=== PATIENT | male | born 1965 | race Caucasian/White ===

== ENCOUNTER → 2016-07-15 | Outpatient (CLI) | payer OTHER ==
[2016-07-15 19:18] LABS: Hemoglobin A1C 5.6 % (4.2-6.1)
== END | disposition home or self-care (01) ==
LOC: MMGSC 14:22
PROVIDERS: ATTEND Family Medicine
DX: E11.9 Type 2 diabetes mellitus without complications (principal)
CPT/HCPCS: 36415; 83036

== ENCOUNTER 2016-09-12 09:39 | Day surgery (SDC) | payer OTHER ==
[2016-09-11 09:06] VITALS: BMI 34.2
[~2016-09-12 09:39] MED LIST: LACTATED RINGERS 1,000 ML IV SCH; LIDOCAINE 1% 20 ML VIAL (10MG/ML) FOR IV START INTRADERMA PRN
[2016-09-12 11:47] VITALS: RESP 16; TEMP 98.1
[2016-09-12] MEDS ORDERED: PROPOFOL 10 MG/ML 20 ML VIAL IV ONE (12:20)
[2016-09-12] MEDS ORDERED: LACTATED RINGERS 1,000 ML IV ONE (12:55)
[2016-09-12 13:24] VITALS: BP 113/76; PULSE 71
--- NOTE | 2016-09-12 13:52 | P.PCN ---
Date of Procedure: 09/12/16 Procedure(s) Performed: Procedure: Colonoscopy and polypectomy. Preoperative diagnosis: Occult blood positive stools. Postoperative diagnosis: 1. Large sigmoid polyp at 50 cm from the anal verge snared and retrieved by capturing it with the snare and withdrawing the endoscope. 2. Distal sigmoid polyp snared and retrieved by suction. 3. Sigmoid diverticulosis with no evidence of acute diverticulitis or strictures. 4. Low-grade internal hemorrhoids without bleeding at the time of this exam. Preparation: HalfLytely prep. Sedation: Was provided by anesthesia. Brief clinical history: The patient is a 51-year-old male who is referred for this evaluation because of occasional blood streaking of his stools and positive occult blood testing. There is no family history of colon cancer or change in bowel habits. No history of anemia. This would be his first colonoscopy. Procedure: With the patient on his left lateral decubitus position and after informed consent and adequate sedation, the perianal area was inspected and it did not show any fissures or fistulas. There were no masses felt on digital rectal examination. The Olympus CFQ 160L video colonoscope was then inserted in the rectum in the usual fashion and advanced to the cecum. The mucosa appeared healthy. There was a large pedunculated polyp at 50 cm from the anal verge which was snared and retrieved by capturing it with the snare then withdrawn the endoscope. In addition, there was a small to medium-sized distal sigmoid polyp which was snared and retrieved by suction. There was scattered diverticulosis in the sigmoid with no evidence of acute diverticulitis or strictures. I retroflexed the endoscope in the rectum before the endoscope was withdrawn. Low-grade internal hemorrhoids were noted but there was no bleeding. The patient tolerated the procedure well. Plan: The patient was reassured. Discussed dietary measures and local care for hemorrhoids. With the finding of polyps, I am recommending repeat exam in 3 years. He will follow up with you as planned.
== END 2016-09-12 14:10 | disposition home or self-care (01) ==
LOC: ORWHC2ENDO 09:39
DX: D12.5 Benign neoplasm of sigmoid colon (principal); K57.30 Diverticulosis of large intestine without perforation or abscess without bleeding; K64.8 Other hemorrhoids; I10 Essential (primary) hypertension; I48.91 Unspecified atrial fibrillation; Z79.01 Long term (current) use of anticoagulants; F32.9 Major depressive disorder, single episode, unspecified; J45.909 Unspecified asthma, uncomplicated; Z79.51 Long term (current) use of inhaled steroids; Z79.899 Other long term (current) drug therapy
CPT/HCPCS: 45385; J2704; 88305

== ENCOUNTER → 2017-01-17 | Outpatient (CLI) | payer OTHER ==
[2017-01-17 20:59] LABS: ALT 44 U/L (21-72); AST 35 U/L (17-59); Alkaline Phosphatase 99 U/L (38-126); Anion Gap 12 mmol/L; Basophils # (A) 0.1 k/uL (0-0.2); Basophils % (A) 1 %; Blood Urea Nitrogen 17 mg/dL (9-20); CH 31.7; CHCM 35.4; Calcium 10.2 mg/dL (8.4-10.2); Carbon Dioxide 27 mmol/L (22-30); Chloride 98 mmol/L (98-107); Cholesterol 134 mg/dL (<200); Eosinophils # (A) 0.3 k/uL (0-0.7); Eosinophils % (A) 4 %; Glucose 111 mg/dL (74-99); HDL Cholesterol 45 mg/dL (40-60); HGB 17.9 gm/dL (13.0-17.5); Luc # (Auto) 0.11; Luc % (Auto) 2; Lymphocytes # (A) 1.3 k/uL (1.0-4.8); Lymphocytes % (A) 18 %; MCHC 34.5 g/dL (31.0-37.0); MCV 89.7 fL (80.0-100.0); Mean Platelet Volume 7.4; Monocytes # (A) 0.4 k/uL (0-1.0); Monocytes % (A) 5 %; Neutrophils # (A) 5.2 k/uL (1.3-7.7); Neutrophils % (A) 71 %; Non-African American GFR(MDRD) >60 (>60 ml/min/1.73 sqM); Potassium 4.1 mmol/L (3.5-5.1); RBC 5.79 m/uL (4.30-5.90); RDW 13.9 % (11.5-15.5); Sodium 137 mmol/L (137-145); Total Bilirubin 0.7 mg/dL (0.2-1.3); Total Protein 7.8 g/dL (6.3-8.2); WBC 7.4 k/uL (3.8-10.6); WBC (Perox) 7.14
[2017-01-17 23:13] LABS: Hemoglobin A1C 5.9 % (4.2-6.1)
== END ==
LOC: MMGSC 17:16
PROVIDERS: ATTEND Family Medicine
DX: I48.91 Unspecified atrial fibrillation (principal); R20.2 Paresthesia of skin; E11.9 Type 2 diabetes mellitus without complications
CPT/HCPCS: 36415; 80053; 80061; 83036; 84443; 85025

== ENCOUNTER → 2017-07-04 | Outpatient (CLI) | payer OTHER ==
[2017-07-04 21:50] LABS: Basophils # (A) 0.1 k/uL (0-0.2); Basophils % (A) 1 %; Eosinophils # (A) 0.4 k/uL (0-0.7); Eosinophils % (A) 5 %; HCT 46.8 % (39.0-53.0); HGB 15.6 gm/dL (13.0-17.5); Lymphocytes # (A) 1.2 k/uL (1.0-4.8); Lymphocytes % (A) 16 %; MCH 30.8 pg (25.0-35.0); MCHC 33.4 g/dL (31.0-37.0); MCV 92.3 fL (80.0-100.0); Mean Platelet Volume 7.8; Monocytes # (A) 0.4 k/uL (0-1.0); Monocytes % (A) 6 %; Neutrophils % (A) 71 %; Platelet Count 226 k/uL (150-450); RBC 5.07 m/uL (4.30-5.90); RDW 13.8 % (11.5-15.5); WBC 7.1 k/uL (3.8-10.6)
[2017-07-04 21:57] LABS: ALT 39 U/L (21-72); AST 33 U/L (17-59); Albumin 4.1 g/dL (3.5-5.0); Alkaline Phosphatase 81 U/L (38-126); Anion Gap 13 mmol/L; Blood Urea Nitrogen 16 mg/dL (9-20); Calcium 9.3 mg/dL (8.4-10.2); Carbon Dioxide 27 mmol/L (22-30); Chloride 102 mmol/L (98-107); Cholesterol 134 mg/dL (<200); Glucose 102 mg/dL (74-99); HDL Cholesterol 41 mg/dL (40-60); LDL Cholesterol,Calculated 65 mg/dL (0-99); Sodium 142 mmol/L (137-145); Total Bilirubin 0.7 mg/dL (0.2-1.3); Total Protein 7.2 g/dL (6.3-8.2); Triglycerides 138 mg/dL (<150)
[2017-07-04 22:10] LABS: T4, Free (Free Thyroxine) 0.99 ng/dL (0.78-2.19)
[2017-07-05 01:54] LABS: Hemoglobin A1C 5.5 % (4.0-6.0)
== END | disposition home or self-care (01) ==
LOC: MMGSC 15:54
PROVIDERS: ATTEND Family Medicine
DX: E78.5 Hyperlipidemia, unspecified (principal); E11.9 Type 2 diabetes mellitus without complications
CPT/HCPCS: 36415; 80053; 80061; 83036; 84439; 84443; 85025

== ENCOUNTER 2017-09-26 09:00 | Observation (INO) | payer OTHER ==
[2017-09-26] MEDS ORDERED: ASPIRIN 81 MG PO STA (09:15)
[2017-09-26] MEDS ORDERED: NITROGLYCERIN SL TABS 0.4 MG TAB SUBLINGUAL STA ×3 (09:15)
[2017-09-26] MEDS ORDERED: DILTIAZEM 50 MG in SODIUM CHLORIDE 0.9% 40 ML IV ONE (09:19)
[2017-09-26] MEDS ORDERED: DILTIAZEM 5 MG/1 ML (25ML VIAL) IV STA (09:19)
--- NOTE | 2017-09-26 09:19 | ED ---
General Adult HPI - General Chief complaint: Chest Pain Stated complaint: Chest Pain Time Seen by Provider: 09/26/17 09:11 Source: patient, RN notes reviewed Mode of arrival: wheelchair Limitations: no limitations - History of Present Illness Initial comments: Patient is a pleasant 52-year-old male presenting to the emergency Department with chest discomfort. Onset of symptoms was last night. Symptoms have been mostly steady. Discomfort feels dull in the sternal region. Discomfort is more sharp with deep inspiration. Symptoms do worsen with deep inspiration as well. Patient does feel somewhat short of breath. No nausea or diaphoresis. Patient has had similar episodes a couple times over the past month lasting usually less than an hour. No radiation. Patient does have history of atrial fibrillation and is on an eliquis for this. Discomfort is currently 11/18. - Related Data Home Medications Medication Instructions Recorded Confirmed Albuterol Sulfate [Proair Hfa] 1 - 2 puff INHALATION RT-Q6H PRN 09/11/16 Atorvastatin [Lipitor] 20 mg PO DAILY 09/11/16 09/26/17 Chlorthalidone [Hygroton] 25 mg PO DAILY 09/11/16 09/26/17 Diltiazem HCl [Diltiazem 24Hr ER] 180 mg PO DAILY 09/11/16 09/26/17 Mometasone/Formoterol [Dulera 100 2 puff INHALATION RT-BID 09/11/16 09/26/17 Mcg/5 Mcg Inhaler] Montelukast [Singulair] 10 mg PO DAILY 09/11/16 09/26/17 Ramipril 2.5 mg PO DAILY 09/11/16 09/26/17 Sertraline [Zoloft] 100 mg PO DAILY 09/11/16 09/26/17 Apixaban [Eliquis] 5 mg PO BID 09/26/17 09/26/17 Gabapentin [Neurontin] 300 mg PO BID 09/26/17 09/26/17 Allergies Allergy/AdvReac Type Severity Reaction Status Date / Time No Known Allergies Allergy Verified 09/26/17 09:34 Review of Systems ROS Statement: Those systems with pertinent positive or pertinent negative responses have been documented in the HPI. ROS Other: All systems not noted in ROS Statement are negative. Constitutional: Denies: fever Eyes: Denies: eye pain ENT: Denies: ear pain Respiratory: Reports: dyspnea Cardiovascular: Reports: chest pain. Denies: palpitations Endocrine: Denies: fatigue Gastrointestinal: Denies: abdominal pain Genitourinary: Denies: dysuria Musculoskeletal: Denies: back pain Skin: Denies: rash Neurological: Denies: weakness Past Medical History Past Medical History: Atrial Fibrillation, Asthma, Blood Disorder, Deep Vein Thrombosis (DVT), Hyperlipidemia, Hypertension, Pulmonary Embolus (PE) Additional Past Medical History / Comment(s): hx low protein s- clotting disorder History of Any Multi-Drug Resistant Organisms: None Reported Additional Past Surgical History / Comment(s): cardioversion x2, lymph node x 3 removed lt axillae Past Anesthesia/Blood Transfusion Reactions: No Reported Reaction Smoking Status: Former smoker - Past Family History Sister(s) Family Medical History: Deep Vein Thrombosis (DVT) General Exam Limitations: no limitations General appearance: alert, in no apparent distress Head exam: Present: atraumatic Eye exam: Present: normal appearance, PERRL ENT exam: Present: normal oropharynx Neck exam: Present: normal inspection Respiratory exam: Present: normal lung sounds bilaterally Cardiovascular Exam: Present: tachycardia, irregular rhythm Expanded Peripheral pulses: 2+: Radial (R), Radial (L), Posterior Tibialis (R), Posterior Tibialis (L) GI/Abdominal exam: Present: soft. Absent: tenderness Extremities exam: Present: normal inspection. Absent: pedal edema, calf tenderness Neurological exam: Present: alert Psychiatric exam: Present: normal affect, normal mood Skin exam: Present: normal color Course Vital Signs 09/26/17 09/26/17 09/26/17 09:05 09:50 09:59 Temperature 97.9 F Pulse Rate 111 H 138 H 145 H Respiratory 20 16 16 Rate Blood Pressure 180/93 151/101 146/90 O2 Sat by Pulse 99 98 98 Oximetry 09/26/17 11:00 Temperature Pulse Rate 126 H Respiratory 18 Rate Blood Pressure 150/81 O2 Sat by Pulse 97 Oximetry EKG Findings - EKG Comments: EKG Findings:: A. fib with RVR, rate 132. QRS 70. QT 304. QTC 450. Normal axis. Normal QRS. No acute ST change. Medical Decision Making - Medical Decision Making Patient reevaluated and resting comfortably in bed. Patient feels much better after nitroglycerin. Patient only has discomfort with deep breath at this time. Heart rate remains between 126 and 133. Patient updated on results and plan. [facility] physician group has been paged for admission for Dr. Betancourt - Lab Data Result diagrams: 09/26/17 09:15 09/26/17 09:15 Lab Results 09/26/17 09/26/17 09/26/17 Range/Units 09:15 09:15 09:15 WBC 11.1 H (3.8-10.6) k/uL RBC 5.47 (4.30-5.90) m/uL Hgb 16.8 (13.0-17.5) gm/dL Hct 50.0 (39.0-53.0) % MCV 91.5 (80.0-100.0) fL MCH 30.7 (25.0-35.0) pg MCHC 33.6 (31.0-37.0) g/dL RDW 13.6 (11.5-15.5) % Plt Count 216 (150-450) k/uL Neutrophils % 79 % Lymphocytes % 11 % Monocytes % 5 % Eosinophils % 3 % Basophils % 1 % Neutrophils # 8.7 H (1.3-7.7) k/uL Lymphocytes # 1.2 (1.0-4.8) k/uL Monocytes # 0.6 (0-1.0) k/uL Eosinophils # 0.4 (0-0.7) k/uL Basophils # 0.1 (0-0.2) k/uL PT (9.0-12.0) sec INR (<1.2) APTT (22.0-30.0) sec Sodium 141 (137-145) mmol/L Potassium 4.4 (3.5-5.1) mmol/L Chloride 102 (98-107) mmol/L Carbon Dioxide 26 (22-30) mmol/L Anion Gap 13 mmol/L BUN 13 (9-20) mg/dL Creatinine 0.90 (0.66-1.25) mg/dL Est GFR (CKD-EPI)AfAm >90 (>60 ml/min/1.73 sqM) Est GFR (CKD-EPI)NonAf >90 (>60 ml/min/1.73 sqM) Glucose 120 H (74-99) mg/dL Calcium 9.5 (8.4-10.2) mg/dL Magnesium 1.8 (1.6-2.3) mg/dL Total Bilirubin 0.5 (0.2-1.3) mg/dL AST 25 (17-59) U/L ALT 40 (21-72) U/L Alkaline Phosphatase 78 (38-126) U/L Total Creatine Kinase 50 L (55-170) U/L CK-MB (CK-2) 0.6 (0.0-2.4) ng/mL CK-MB (CK-2) Rel Index 1.2 Troponin I <0.012 (0.000-0.034) ng/mL Total Protein 7.1 (6.3-8.2) g/dL Albumin 4.4 (3.5-5.0) g/dL Amylase 51 (30-110) U/L Lipase 107 (23-300) U/L 09/26/17 Range/Units 09:15 WBC (3.8-10.6) k/uL RBC (4.30-5.90) m/uL Hgb (13.0-17.5) gm/dL Hct (39.0-53.0) % MCV (80.0-100.0) fL MCH (25.0-35.0) pg MCHC (31.0-37.0) g/dL RDW (11.5-15.5) % Plt Count (150-450) k/uL Neutrophils % % Lymphocytes % % Monocytes % % Eosinophils % % Basophils % % Neutrophils # (1.3-7.7) k/uL Lymphocytes # (1.0-4.8) k/uL Monocytes # (0-1.0) k/uL Eosinophils # (0-0.7) k/uL Basophils # (0-0.2) k/uL PT 9.8 (9.0-12.0) sec INR 1.0 (<1.2) APTT 22.1 (22.0-30.0) sec Sodium (137-145) mmol/L Potassium (3.5-5.1) mmol/L Chloride (98-107) mmol/L Carbon Dioxide (22-30) mmol/L Anion Gap mmol/L BUN (9-20) mg/dL Creatinine (0.66-1.25) mg/dL Est GFR (CKD-EPI)AfAm (>60 ml/min/1.73 sqM) Est GFR (CKD-EPI)NonAf (>60 ml/min/1.73 sqM) Glucose (74-99) mg/dL Calcium (8.4-10.2) mg/dL Magnesium (1.6-2.3) mg/dL Total Bilirubin (0.2-1.3) mg/dL AST (17-59) U/L ALT (21-72) U/L Alkaline Phosphatase (38-126) U/L Total Creatine Kinase (55-170) U/L CK-MB (CK-2) (0.0-2.4) ng/mL CK-MB (CK-2) Rel Index Troponin I (0.000-0.034) ng/mL Total Protein (6.3-8.2) g/dL Albumin (3.5-5.0) g/dL Amylase (30-110) U/L Lipase (23-300) U/L - Radiology Data Radiology results: image reviewed (Chest x-ray shows no acute process) Critical Care Time Critical Care Time: Yes Total Critical Care Time: 33 Disposition Clinical Impression: Chest pain, Atrial fibrillation with RVR Disposition: ADMITTED IP TO THIS HOSP Referrals: Gin Flores MD [Primary Care Provider] - 1-2 days Decision Time: 11:22
[2017-09-26 09:38] LABS: Basophils # (A) 0.1 k/uL (0-0.2); Basophils % (A) 1 %; Eosinophils # (A) 0.4 k/uL (0-0.7); Eosinophils % (A) 3 %; HGB 16.8 gm/dL (13.0-17.5); Lymphocytes # (A) 1.2 k/uL (1.0-4.8); Lymphocytes % (A) 11 %; MCH 30.7 pg (25.0-35.0); MCHC 33.6 g/dL (31.0-37.0); MCV 91.5 fL (80.0-100.0); Mean Platelet Volume 6.7; Monocytes # (A) 0.6 k/uL (0-1.0); Monocytes % (A) 5 %; Neutrophils # (A) 8.7 k/uL (1.3-7.7); Neutrophils % (A) 79 %; Platelet Count 216 k/uL (150-450); RBC 5.47 m/uL (4.30-5.90); RDW 13.6 % (11.5-15.5); WBC 11.1 k/uL (3.8-10.6)
[2017-09-26 09:47] LABS: ALT 40 U/L (21-72); AST 25 U/L (17-59); Albumin 4.4 g/dL (3.5-5.0); Alkaline Phosphatase 78 U/L (38-126); Amylase 51 U/L (30-110); Anion Gap 13 mmol/L; Blood Urea Nitrogen 13 mg/dL (9-20); Calcium 9.5 mg/dL (8.4-10.2); Carbon Dioxide 26 mmol/L (22-30); Chloride 102 mmol/L (98-107); Glucose 120 mg/dL (74-99); Lipase 107 U/L (23-300); Magnesium 1.8 mg/dL (1.6-2.3); Partial Thromboplastin Time 22.1 sec (22.0-30.0); Potassium 4.4 mmol/L (3.5-5.1); Prothrombin Time 9.8 sec (9.0-12.0); Sodium 141 mmol/L (137-145); Total Bilirubin 0.5 mg/dL (0.2-1.3); Total Protein 7.1 g/dL (6.3-8.2)
[2017-09-26 09:59] LABS: Creatine Kinase 50 U/L (55-170)
[2017-09-26] MEDS ORDERED: NITROGLYCERIN OINT 1 INCH/GM PACKET TOPICAL STA (10:06)
[2017-09-26 10:12] LABS: Creatine Kinase MB 0.6 ng/mL (0.0-2.4); Troponin I <0.012 ng/mL (0.000-0.034)
--- NOTE | 2017-09-26 11:15 | XR ---
EXAMINATION TYPE: XR chest 2V DATE OF EXAM: 09/26/2017 COMPARISON: NONE HISTORY: Chest pain TECHNIQUE: Frontal and lateral views of the chest are obtained. FINDINGS: There is no focal air space opacity, pleural effusion, or pneumothorax seen. The cardiac silhouette size is within normal limits. The osseous structures are intact. There are overlying car diac leads. IMPRESSION: No acute cardiopulmonary process.
[2017-09-26] MEDS ORDERED: NITROGLYCERIN SL TABS 0.4 MG TAB SUBLINGUAL PRN (11:22)
[2017-09-26] MEDS: NITROGLYCERIN OINT 1 INCH/GM PACKET TOPICAL SCH ×3 (13:10→23:00)
[2017-09-26 16:29] LABS: Creatine Kinase 44 U/L (55-170)
--- NOTE | 2017-09-26 16:41 | P.HPIM ---
History of Present Illness H&P Date: 09/26/17 Chief Complaint: Chest pain The patient is a 52-year-old male with a past medical history of essential hypertension, hyperlipidemia and atrial fibrillation on chronic anticoagulation with eliquis and known protein S deficiency who presents to the ER with chief complaint of chest pain that began at rest this morning while he was sitting at the computer station, describes it as pressure-like substernal nonradiating and pleuritic in nature and associated with deep breaths with associated shortness of breath and changing positions but not reproducible on palpation, denies any diaphoresis or nausea & vomiting. Patient does report a recent flulike illness. The patient denies any symptoms of heart racing or palpitations, denies lightheadedness or dizziness, denies any productive cough or throat. Denies syncope or presyncope or lower extremity swelling. The patient had an extensive workup in the ER his EKG was consistent with A. fib with RVR, his cardiac troponins were negative Past Medical History Past Medical History: Atrial Fibrillation, Asthma, Blood Disorder, Deep Vein Thrombosis (DVT), Hyperlipidemia, Hypertension, Pulmonary Embolus (PE) Additional Past Medical History / Comment(s): hx low protein s- clotting disorder, DVT R leg and pulmonary embolism R lung, RABIA and states he does not use his device at this time/needs a new mask, diverticulosis, benign polyps. History of Any Multi-Drug Resistant Organisms: None Reported Additional Past Surgical History / Comment(s): cardioversion x2, lymph node x 3 removed lt axillae-benign, colonoscopy with polypectomies. Past Anesthesia/Blood Transfusion Reactions: No Reported Reaction Smoking Status: Former smoker - Past Family History Sister(s) Family Medical History: Deep Vein Thrombosis (DVT) Mother Family Medical History: Cancer Additional Family Medical History / Comment(s): Mother of lung cancer. She was a nonsmoker. 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 Father Family Medical History: Cancer Additional Family Medical History / Comment(s): Father of lung cancer. He was a smoker. Medications and Allergies Home Medications Medication Instructions Recorded Confirmed Type Albuterol Sulfate [Proair Hfa] 1 - 2 puff INHALATION RT-Q6H PRN 09/11/16 History Atorvastatin [Lipitor] 20 mg PO DAILY 09/11/16 09/26/17 History Chlorthalidone [Hygroton] 25 mg PO DAILY 09/11/16 09/26/17 History Diltiazem HCl [Diltiazem 24Hr ER] 180 mg PO DAILY 09/11/16 09/26/17 History Mometasone/Formoterol [Dulera 100 2 puff INHALATION RT-BID 09/11/16 09/26/17 History Mcg/5 Mcg Inhaler] Montelukast [Singulair] 10 mg PO DAILY 09/11/16 09/26/17 History Ramipril 2.5 mg PO DAILY 09/11/16 09/26/17 History Sertraline [Zoloft] 100 mg PO DAILY 09/11/16 09/26/17 History Apixaban [Eliquis] 5 mg PO BID 09/26/17 09/26/17 History Gabapentin [Neurontin] 300 mg PO BID 09/26/17 09/26/17 History Allergies Allergy/AdvReac Type Severity Reaction Status Date / Time No Known Allergies Allergy Verified 09/26/17 09:34 Physical Exam Vitals: Vital Signs Temp Pulse Resp BP Pulse Ox 09/26/17 14:49 78 18 119/63 96 09/26/17 13:11 103 H 16 118/71 94 L 09/26/17 11:00 126 H 18 150/81 97 09/26/17 09:59 145 H 16 146/90 98 09/26/17 09:50 138 H 16 151/101 98 09/26/17 09:05 97.9 F 111 H 20 180/93 99 Intake and Output 09/26/17 09/26/17 09/26/17 06:59 14:59 22:59 Other: Weight 115.666 kg Constitutional: No acute distress, conversant, pleasant Eyes: Anicteric sclerae, moist conjunctiva, no lid-lag, PERRLA ENMT: NC/AT,Oropharynx clear, no erythema, exudates Neck:Supple, FROM, no masses, or JVD, No carotid bruits; No thyromegaly Lungs: Clear to auscultation, Clear to percussion, Normal respiratory effort, no accessory muscle use Cardiovascular: Heart regular in rate and rhythm, No murmurs, gallops, or rubs no peripheral edema Abdominal: Soft Nontender, nom distended, no guarding, no rebound or rigidity, Normoactive bowel sounds No hepatomegaly, No splenomegaly, No palpable mass No abdominal wall hernia noted Skin: Normal temperature, tone, texture, turgor, No induration No subcutaneous nodules, No rash, lesions, No ulcers Extremities:No digital cyanosis No clubbing, Pedal pulses intact and symmetrical Radial pulses intact and symmetrical Normal gait and station, No calf tenderness Psychiatric: Alert and oriented to person, place and time, Appropriate affect Intact judgement Neuro: Muscles Strength 5/5 in all 4 extremities, Sensation to light touch grossly present throughout, Cranial nerves II-XII grossly intact. No focal sensory deficits Results CBC & Chem 7: 09/26/17 09:15 09/26/17 09:15 Labs: Abnormal Lab Results - Last 24 Hours (Table) 09/26/17 09/26/17 09/26/17 Range/Units 09:15 09:15 09:15 WBC 11.1 H (3.8-10.6) k/uL Neutrophils # 8.7 H (1.3-7.7) k/uL Glucose 120 H (74-99) mg/dL Total Creatine Kinase 50 L (55-170) U/L Thrombosis Risk Factor Assmnt - Choose All That Apply Any of the Below Risk Factors Present?: Yes Each Factor Represents 1 point: Age 41-60 years, Obesity (BMI >25) Other Risk Factors: Yes Each Risk Factor Represents 3 Points: Family history of DVT/PE, History of DVT/ PE Other congenital or acquired thrombophilia - If yes, enter type in comment: No Thrombosis Risk Factor Assessment Total Risk Factor Score: 8 Thrombosis Risk Factor Assessment Level: High Risk Assessment and Plan (1) Atypical chest pain Current Visit: Yes Status: Acute Code(s): R07.89 - OTHER CHEST PAIN SNOMED Code(s): 081298749 (2) Essential hypertension Current Visit: Yes Status: Acute Code(s): I10 - ESSENTIAL (PRIMARY) HYPERTENSION SNOMED Code(s): 83788689 (3) Hyperlipidemia Current Visit: Yes Status: Acute Code(s): E78.5 - HYPERLIPIDEMIA, UNSPECIFIED SNOMED Code(s): 68937659 (4) Atrial fibrillation with RVR Current Visit: Yes Status: Acute Code(s): I48.91 - UNSPECIFIED ATRIAL FIBRILLATION SNOMED Code(s): 413129004069512 Plan: The patient is placed on observation presented with atypical chest pain found to be in A. fib with RVR started on Cardizem drip, initial EKG and cardiac enzymes are negative for injection acute ischemia. The patient is continued on his chronic anticoagulation with eliquis, given patient's history of protein S deficiency we will check a d-dimer and if elevated order a CT of the chest to rule out PE. 2-D echocardiogram. TSH AND LIPID panel is pending. Cardiology is consulted for further recommendations. Continue to follow clinical course
[2017-09-26 16:42] LABS: Creatine Kinase MB 0.4 ng/mL (0.0-2.4); Troponin I <0.012 ng/mL (0.000-0.034)
[2017-09-26] MEDS: APIXABAN 5 MG TAB PO SCH (20:40)
[2017-09-26 21:59] LABS: Creatine Kinase 40 U/L (55-170)
[2017-09-26 22:12] LABS: Creatine Kinase MB 0.3 ng/mL (0.0-2.4); Troponin I <0.012 ng/mL (0.000-0.034)
[2017-09-27 01:36] LABS: Cholesterol 146 mg/dL (<200); HDL Cholesterol 39 mg/dL (40-60); LDL Cholesterol,Calculated 73 mg/dL (0-99); Triglycerides 168 mg/dL (<150)
[2017-09-27] MEDS: NITROGLYCERIN OINT 1 INCH/GM PACKET TOPICAL SCH ×4 (04:37→22:47)
[2017-09-27] MEDS: ASPIRIN 325 MG TAB PO SCH (08:04)
[2017-09-27] MEDS: LISINOPRIL 10 MG TAB PO SCH (08:04)
[2017-09-27] MEDS: ATORVASTATIN 20 MG TAB PO SCH (08:04)
[2017-09-27] MEDS: APIXABAN 5 MG TAB PO SCH ×2 (08:04→20:47)
--- NOTE | 2017-09-27 08:40 | ECHOF ---
Referral Reason:afib with rvr MEASUREMENTS -------- HEIGHT: 182.9 cm WEIGHT: 115.7 kg BP: RVIDd: 3.0 cm (< 3.3) IVSd: 1.1 cm (0.6 - 1.1) LVIDd: 4.2 cm (3.9 - 5.3) LVPWd: 1.1 cm (0.6 - 1.1) IVSs: 1.2 cm LVIDs: 3.5 cm LVPWs: 1.0 cm LA Diam: 3.7 cm (2.7 - 3.8) LAESV Index (A-L): 22.75 ml/m Ao Diam: 3.4 cm (2.0 - 3.7) AV Cusp: 2.4 cm (1.5 - 2.6) LA Diam: 4.8 cm (2.7 - 3.8) MV EXCURSION: 19.523 mm (> 18.000) MV EF SLOPE: 78 mm/s (70 - 150) EPSS: 0.7 cm MV E Stuart: 0.96 m/s MV DecT: 154 ms MV A Stuart: 0.06 m/s MV E/A Ratio: 16.46 RAP: 5.00 mmHg RVSP: 23.28 mmHg FINDINGS -------- Atrial fibrillation. This was a technically good study. LV size, wall thickness and systolic function are normal, with an EF greater than 55%. The left nieves tricular size is normal. The right ventricle is normal in size. The left atrial size is normal. Normal LA size by volume 22+/-6 ml/m2. The right atrial size is normal. The aortic valve is trileaflet, and appears structurally normal. No aortic stenosis or regurgitation. Mild mitral regurgitation is present. Mild tricuspid regurgitation present. There is no evidence of pulmonary hypertension. The right v entricular systolic pressure, as measured by Doppler, is 23.28mmHg. Trace/mild (physiologic) pulmonic regurgitation. The aortic root size is normal. There is no pericardial effusion. CONCLUSIONS -------- 1. Atrial fibrillation. 2. LV size, wall thickness and systolic function are normal, with an EF greater than 55%. 3. The left ventricular size is normal. 4. The right ventricle is normal in size. 5. The left atrial size is normal. 6. The right atrial size is normal. 7. The aortic valve is trileaflet, and appears structurally normal. No aortic stenosis or regurgitati on. 8. Mild mitral regurgitation is present. 9. Mild tricuspid regurgitation present. 10. There is no evidence of pulmonary hypertension. 11. The right ventricular systolic pressure, as measured by Doppler, is 23.28mmHg. 12. Trace/mild (physiologic) pulmonic regurgitation. 13. The aortic root size is normal. 14. There is no pericardial effusion. QUALITY ASSURANCE ADVISOR: Angely Bradford RDCS
[2017-09-27] MEDS ORDERED: METOPROLOL TARTRATE 25 MG TAB PO SCH (09:00)
--- NOTE | 2017-09-27 09:44 | P.CRDCN ---
History of Present Illness Consult date: 09/27/17 History of present illness: This is a 52-year-old gentleman with history of atrial fibrillation for many years being followed by a payroll and benefits analyst out of [facility]. Apparently patient had previous cardioversions which were not successful. Patient was on rate control mode of therapy with anticoagulation. Patient came to the emergency room because of midsternal chest discomfort. Apparently patient woke up in the middle of the night with the symptoms, which was 8 out of 10. Patient was sweaty. His EKGs on admission showed evidence of atrial fibrillation with RVR. So far his cardiac enzymes have been negative. He seemed to be stable at this time. His echo Cardigan showed normal LV function. Patient is off IV Cardizem. I'm going to increase the dose of the metoprolol to 50 twice a day . Increase activity as tolerated. If patient remains stable , patient could be discharged home to have stress test as an outpatient. However, the patient has any more chest pain, patient may need inpatient evaluation. Further recommendations depend upon clinical course Review of Systems As per HPI Past Medical History Past Medical History: Atrial Fibrillation, Asthma, Blood Disorder, Deep Vein Thrombosis (DVT), Hyperlipidemia, Hypertension, Pulmonary Embolus (PE) Additional Past Medical History / Comment(s): hx low protein s- clotting disorder, DVT R leg and pulmonary embolism R lung, RABIA and states he does not use his device at this time/needs a new mask, diverticulosis, benign polyps. History of Any Multi-Drug Resistant Organisms: None Reported Additional Past Surgical History / Comment(s): cardioversion x2, lymph node x 3 removed lt axillae-benign, colonoscopy with polypectomies. Past Anesthesia/Blood Transfusion Reactions: No Reported Reaction Smoking Status: Former smoker - Past Family History Sister(s) Family Medical History: Deep Vein Thrombosis (DVT) Mother Family Medical History: Cancer Additional Family Medical History / Comment(s): Mother of lung cancer. She was a nonsmoker. 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 Father Family Medical History: Cancer Additional Family Medical History / Comment(s): Father of lung cancer. He was a smoker. Medications and Allergies Home Medications Medication Instructions Recorded Confirmed Type Albuterol Sulfate [Proair Hfa] 1 - 2 puff INHALATION RT-Q6H PRN 09/11/16 History Atorvastatin [Lipitor] 20 mg PO DAILY 09/11/16 09/26/17 History Chlorthalidone [Hygroton] 25 mg PO DAILY 09/11/16 09/26/17 History Diltiazem HCl [Diltiazem 24Hr ER] 180 mg PO DAILY 09/11/16 09/26/17 History Mometasone/Formoterol [Dulera 100 2 puff INHALATION RT-BID 09/11/16 09/26/17 History Mcg/5 Mcg Inhaler] Montelukast [Singulair] 10 mg PO DAILY 09/11/16 09/26/17 History Ramipril 2.5 mg PO DAILY 09/11/16 09/26/17 History Sertraline [Zoloft] 100 mg PO DAILY 09/11/16 09/26/17 History Apixaban [Eliquis] 5 mg PO BID 09/26/17 09/26/17 History Gabapentin [Neurontin] 300 mg PO BID 09/26/17 09/26/17 History Allergies Allergy/AdvReac Type Severity Reaction Status Date / Time No Known Allergies Allergy Verified 09/26/17 09:34 Physical Exam Vitals: Vital Signs Temp Pulse Pulse Resp BP BP Pulse Ox 09/27/17 08:00 100.3 F H 96 18 134/79 94 L 09/27/17 04:00 98.5 F 85 16 134/72 94 L 09/27/17 00:00 98.1 F 95 16 126/67 95 09/26/17 20:00 97.8 F 95 16 130/66 93 L 09/26/17 16:45 98.3 F 76 16 114/63 95 09/26/17 16:27 98.3 F 77 18 137/72 94 L 09/26/17 14:49 78 18 119/63 96 09/26/17 13:11 103 H 16 118/71 94 L 09/26/17 11:00 126 H 18 150/81 97 09/26/17 09:59 145 H 16 146/90 98 09/26/17 09:50 138 H 16 151/101 98 Intake and Output 09/26/17 09/27/17 09/27/17 22:59 06:59 14:59 Intake Total 200 125 0 Balance 200 125 0 Intake: Intake, IV Titration 0 Amount Diltiazem 50 mg In Sodium 0 Chloride 0.9% 40 ml @ 10 MG/HR 10 mls/hr IV .Q5H ONE Rx#:[id number] Oral 200 125 Other: Voiding Method Urinal Urinal # Voids 1 Weight 118.1 kg GENERAL EXAM: Patient is alert and oriented and doesn't appear to be in any acute distress HEENT: Normocephalic. Normal reaction of pupils, equal size, normal range of extraocular motion. No erythema or exudates in the throat. NECK: No masses, no nuchal rigidity. CHEST: No chest wall deformity. LUNGS: Equal air entry with no crackles or wheeze. HEART: S1 and S2 normal with no audible mumurs or gallops. Regular rhythm, femorals equal on both sides.. ABDOMEN: No hepatosplenomegaly, normal bowel sounds, no guarding or rigidity. SKIN: No rashes CENTRAL NERVOUS SYSTEM: No focal deficits. EXTREMITIES: No cyanosis, clubbing or edema. Results 09/26/17 09:15 09/26/17 09:15 Cardiac Enzymes 09/26/17 09/26/17 09/26/17 Range/Units 09:15 09:15 15:53 AST 25 (17-59) U/L CK-MB (CK-2) 0.6 0.4 (0.0-2.4) ng/mL Troponin I <0.012 <0.012 (0.000-0.034) ng/mL 09/26/17 Range/Units 21:23 AST (17-59) U/L CK-MB (CK-2) 0.3 (0.0-2.4) ng/mL Troponin I <0.012 (0.000-0.034) ng/mL Coagulation 09/26/17 Range/Units 09:15 PT 9.8 (9.0-12.0) sec APTT 22.1 (22.0-30.0) sec Lipids 09/26/17 Range/Units 09:15 Triglycerides 168 H (<150) mg/dL Cholesterol 146 (<200) mg/dL HDL Cholesterol 39 L (40-60) mg/dL CBC 09/26/17 Range/Units 09:15 WBC 11.1 H (3.8-10.6) k/uL RBC 5.47 (4.30-5.90) m/uL Hgb 16.8 (13.0-17.5) gm/dL Hct 50.0 (39.0-53.0) % Plt Count 216 (150-450) k/uL Comprehensive Metabolic Panel 09/26/17 Range/Units 09:15 Sodium 141 (137-145) mmol/L Potassium 4.4 (3.5-5.1) mmol/L Chloride 102 (98-107) mmol/L Carbon Dioxide 26 (22-30) mmol/L BUN 13 (9-20) mg/dL Creatinine 0.90 (0.66-1.25) mg/dL Glucose 120 H (74-99) mg/dL Calcium 9.5 (8.4-10.2) mg/dL AST 25 (17-59) U/L ALT 40 (21-72) U/L Alkaline Phosphatase 78 (38-126) U/L Total Protein 7.1 (6.3-8.2) g/dL Albumin 4.4 (3.5-5.0) g/dL Current Medications Generic Name Dose Route Start Last Admin Trade Name Freq PRN Reason Stop Dose Admin Apixaban 5 mg 09/26/17 21:00 09/27/17 08:04 Eliquis PO 5 mg BID [facility] Administration Aspirin 325 mg 09/27/17 09:00 09/27/17 08:04 Aspirin PO 325 mg DAILY [facility] Administration Atorvastatin Calcium 20 mg 09/27/17 09:00 09/27/17 08:04 Lipitor PO 20 mg DAILY [facility] Administration Lisinopril 10 mg 09/27/17 09:00 09/27/17 08:04 Zestril PO 10 mg DAILY [facility] Administration Metoprolol Tartrate 50 mg 09/27/17 09:38 Lopressor PO BID [facility] Nitroglycerin 1 inch 09/26/17 12:00 09/27/17 04:37 Nitro-Bid Oint TOPICAL Not Given Q6HR [facility] Nitroglycerin 0.4 mg 09/26/17 11:22 Nitrostat SUBLINGUAL Q5M PRN Chest Pain Intake and Output 09/26/17 09/27/17 09/27/17 22:59 06:59 14:59 Intake Total 200 125 0 Balance 200 125 0 Intake: Intake, IV Titration 0 Amount Diltiazem 50 mg In Sodium 0 Chloride 0.9% 40 ml @ 10 MG/HR 10 mls/hr IV .Q5H ONE Rx#:[id number] Oral 200 125 Other: Voiding Method Urinal Urinal # Voids 1 Weight 118.1 kg 09/26/17 09:15 09/26/17 09:15 EKG Interpretations (text) Atrial fibrillation with RVR on admission without any acute changes Assessment and Plan (1) Atrial fibrillation with RVR Current Visit: Yes Status: Acute Code(s): I48.91 - UNSPECIFIED ATRIAL FIBRILLATION SNOMED Code(s): 176115651163904 (2) Chest pain Current Visit: Yes Status: Acute Code(s): R07.9 - CHEST PAIN, UNSPECIFIED SNOMED Code(s): 25769372 (3) Essential hypertension Current Visit: Yes Status: Acute Code(s): I10 - ESSENTIAL (PRIMARY) HYPERTENSION SNOMED Code(s): 78346103 (4) Hyperlipidemia Current Visit: Yes Status: Acute Code(s): E78.5 - HYPERLIPIDEMIA, UNSPECIFIED SNOMED Code(s): 19640308 Plan: Patient's heart rate is well controlled. Patient is currently pain-free. His cardiac enzymes and EKGs did not show any acute ischemic changes. I would recommend that patient activity to be increased. His echo showed normal LV function. If patient remains stable without any recurrence of chest pain, patient could be discharged within 24 hours to have outpatient stress test. However, the patient has any recurrence of symptoms, inpatient evaluation it is either by stress test or cardiac catheterization may be required
[2017-09-27] MEDS: METOPROLOL TARTRATE 50 MG TAB PO SCH (20:47)
[2017-09-28] MEDS: NITROGLYCERIN OINT 1 INCH/GM PACKET TOPICAL SCH (03:58)
[2017-09-28 04:01] VITALS: TEMP 98.2
[2017-09-28] MEDS: LISINOPRIL 10 MG TAB PO SCH (07:56)
[2017-09-28] MEDS: ATORVASTATIN 20 MG TAB PO SCH (07:56)
[2017-09-28] MEDS: APIXABAN 5 MG TAB PO SCH (07:56)
[2017-09-28] MEDS: METOPROLOL TARTRATE 50 MG TAB PO SCH (07:56)
[2017-09-28] MEDS: ASPIRIN 325 MG TAB PO SCH (07:56)
[2017-09-28 08:15] VITALS: BP 125/70; PULSE 80; RESP 16
--- NOTE | 2017-09-28 10:11 | P.PN ---
Subjective Progress Note Date: 09/27/17 Patient feeling much better, A. fib that resolved in the ER, currently in NSR, denies any chest discomfort has been ambulatory. No acute events overnight Objective - Vital Signs Vital signs: Vital Signs Temp 98.2 F 09/28/17 08:00 Pulse 80 09/28/17 08:00 Resp 16 09/28/17 08:00 BP 125/70 09/28/17 08:00 Pulse Ox 97 09/28/17 08:00 Intake & Output 09/27/17 09/28/17 09/28/17 18:59 06:59 18:59 Intake Total 480 125 240 Output Total 250 Balance 230 125 240 Weight 116.3 kg Intake: Intake, IV Titration 0 Amount Diltiazem 50 mg In Sodium 0 Chloride 0.9% 40 ml @ 10 MG/HR 10 mls/hr IV .Q5H ONE Rx#:[id number] Oral 480 125 240 Output: Urine 250 Other: Voiding Method Urinal # Voids 2 1 - Exam Constitutional: No acute distress, conversant, pleasant Eyes: Anicteric sclerae, moist conjunctiva, no lid-lag, PERRLA ENMT: NC/AT,Oropharynx clear, no erythema, exudates Neck:Supple, FROM, no masses, or JVD, No carotid bruits; No thyromegaly Lungs: Clear to auscultation, Clear to percussion, Normal respiratory effort, no accessory muscle use Cardiovascular: Heart regular in rate and rhythm, No murmurs, gallops, or rubs no peripheral edema Abdominal: Soft Nontender, nom distended, no guarding, no rebound or rigidity, Normoactive bowel sounds No hepatomegaly, No splenomegaly, No palpable mass No abdominal wall hernia noted Skin: Normal temperature, tone, texture, turgor, No induration No subcutaneous nodules, No rash, lesions, No ulcers Extremities:No digital cyanosis No clubbing, Pedal pulses intact and symmetrical Radial pulses intact and symmetrical Normal gait and station, No calf tenderness Psychiatric: Alert and oriented to person, place and time, Appropriate affect Intact judgement Neuro: Muscles Strength 5/5 in all 4 extremities, Sensation to light touch grossly present throughout, Cranial nerves II-XII grossly intact. No focal sensory deficits - Labs CBC & Chem 7: 09/26/17 09:15 05/18/18 09:15 Assessment and Plan (1) Atypical chest pain Narrative/Plan: * Patient's chest pain has resolved EEG and cardiac enzymes did not show any acute ischemic changes and his echocardiogram showed normal ejection fraction with LV function * Awaiting cardiology input * Patient likely can likely be discharged home Current Visit: Yes Status: Acute Code(s): R07.89 - OTHER CHEST PAIN SNOMED Code(s): 674282299 (2) Essential hypertension Narrative/Plan: * Stable and controlled Current Visit: Yes Status: Acute Code(s): I10 - ESSENTIAL (PRIMARY) HYPERTENSION SNOMED Code(s): 40466359 (3) Hyperlipidemia Current Visit: Yes Status: Acute Code(s): E78.5 - HYPERLIPIDEMIA, UNSPECIFIED SNOMED Code(s): 88125160 (4) Atrial fibrillation with RVR Narrative/Plan: * Resolved continue beta rosemary therapy metoprolol and anticoagulation with Eliquis Current Visit: Yes Status: Resolved Code(s): I48.91 - UNSPECIFIED ATRIAL FIBRILLATION SNOMED Code(s): 400828986987127 Plan: Likely discharge today or tomorrow pending cardiology recommendations
--- NOTE | 2017-09-28 11:25 | P.DS ---
Providers Date of admission: 09/26/17 11:22 Expected date of discharge: 09/28/17 Attending physician: Margie Sanchez DO Consults: 09/26/17 11:22 Consult Physician Urgent Consulting Provider: Melly Simms Consult Reason/Comments: Chest pain, A. fib with RVR Do you want consulting provider notified?: Yes Primary care physician: Gin Flores - Discharge Diagnosis(es) (1) Atypical chest pain Status: Acute (2) Essential hypertension Status: Acute (3) Hyperlipidemia Status: Acute (4) Atrial fibrillation with RVR Status: Resolved Hospital Course: The patient is a 52-year-old male with a history of paroxysmal atrial fibrillation that presented with atypical chest pain observation to rule out ACS , his initial and subsequent cardiac enzymes were negative and his EKG had no suggestion of any ischemia. On presentation the patient was noted to be in atrial fibrillation with RVR he was started on diltiazem drip and rapidly converted to normal sinus rhythm in the ER, he was subsequently transitioned to metoprolol for rate control and was seen by cardiology. He was continued on Eliquis for stroke prophylaxis. His echocardiogram showed a normal ejection fraction of greater than 55% with normal LV function. Given the patient's risk factors for CAD, cardiology recommended the patient follow-up for outpatient stress test, discussed the ongoing plan of care the patient any stated that he should be able to return on Friday to have one done. The patient was instructed by case management to call to set up this stress test on 09/30. Patient was subsequently discharged home with prescriptions for metoprolol 50 mg by mouth twice a day, and discontinuing his oral Cardizem. This discharge process took approximately 30 minutes Patient Condition at Discharge: Good Plan - Discharge Summary Discharge Rx Participant: No New Discharge Prescriptions: New RX: Metoprolol Tartrate [Lopressor] 50 mg PO BID #60 tab Continue RX: Chlorthalidone [Hygroton] 25 mg PO DAILY RX: Montelukast [Singulair] 10 mg PO DAILY RX: Mometasone/Formoterol [Dulera 100 Mcg/5 Mcg Inhaler] 2 puff INHALATION RT -BID RX: Atorvastatin [Lipitor] 20 mg PO DAILY RX: Albuterol Sulfate [Proair Hfa] 1 - 2 puff INHALATION RT-Q6H PRN PRN Reason: Dyspnea RX: Sertraline [Zoloft] 100 mg PO DAILY RX: Ramipril 2.5 mg PO DAILY RX: Gabapentin [Neurontin] 300 mg PO BID RX: Apixaban [Eliquis] 5 mg PO BID Discontinued Diltiazem HCl [Diltiazem 24Hr ER] 180 mg PO DAILY Discharge Medication List RX: Albuterol Sulfate [Proair Hfa] 1 - 2 puff INHALATION RT-Q6H PRN 09/11/16 [ History] RX: Atorvastatin [Lipitor] 20 mg PO DAILY 09/11/16 [History] RX: Chlorthalidone [Hygroton] 25 mg PO DAILY 09/11/16 [History] RX: Mometasone/Formoterol [Dulera 100 Mcg/5 Mcg Inhaler] 2 puff INHALATION RT- BID 09/11/16 [History] RX: Montelukast [Singulair] 10 mg PO DAILY 09/11/16 [History] RX: Ramipril 2.5 mg PO DAILY 09/11/16 [History] RX: Sertraline [Zoloft] 100 mg PO DAILY 09/11/16 [History] RX: Apixaban [Eliquis] 5 mg PO BID 09/26/17 [History] RX: Gabapentin [Neurontin] 300 mg PO BID 09/26/17 [History] RX: Metoprolol Tartrate [Lopressor] 50 mg PO BID #60 tab 09/28/17 [Rx] Follow up Appointment(s)/Referral(s): Gin Flores MD [Primary Care Provider] - 1-2 days (Office closed, please call and make follow up appointment.) Patient Instructions/Handouts: A-fib (Atrial Fibrillation) (DC) Activity/Diet/Wound Care/Special Instructions: Call hospital on Friday to schedule stress test for Friday. Discharge Disposition: HOME SELF-CARE
== END 2017-09-28 10:54 | disposition home or self-care (01) ==
LOC: EC 09:00 → INTOOBSV 11:22 → 6SEL 11:22 → UNDODISIN 09-28 10:54
PROVIDERS: ADMIT Internal Medicine; ATTEND Internal Medicine
DX: R07.89 Other chest pain (principal); I10 Essential (primary) hypertension; E78.5 Hyperlipidemia, unspecified; I48.0 Paroxysmal atrial fibrillation; J45.909 Unspecified asthma, uncomplicated; D68.59 Other primary thrombophilia; G47.33 Obstructive sleep apnea (adult) (pediatric); Z79.01 Long term (current) use of anticoagulants; Z79.899 Other long term (current) drug therapy; Z86.718 Personal history of other venous thrombosis and embolism; Z86.711 Personal history of pulmonary embolism; Z87.891 Personal history of nicotine dependence; Z80.1 Family history of malignant neoplasm of trachea, bronchus and lung; E66.9 Obesity, unspecified; Z68.33 Body mass index [BMI] 33.0-33.9, adult
CPT/HCPCS: 96376; 96365; 96366; 99291; 36415; 93005; 93306; 85379; 80061; 80053; 84443; 82150; 82550; 82553; 83690; 83735; 84484; 85025; 85610; 85730; 71046; G0378 ×3

== ENCOUNTER → 2017-10-02 | Outpatient (CLI) | payer OTHER ==
[~2017-10-02] MED LIST changes: -LACTATED RINGERS 1,000 ML IV SCH; -LIDOCAINE 1% 20 ML VIAL (10MG/ML) FOR IV START INTRADERMA PRN; +REGADENOSON 0.4 MG/5 ML SYRINGE IV ONE
--- NOTE | 2017-10-02 12:32 | NM ---
EXAMINATION TYPE: NM stress lexiscan cardiolite DATE OF EXAM: 10/02/2017 COMPARISON: NONE HISTORY: Chest pain, hyperlipidemia, family history of coronary artery disease and partial history of tobacco abuse. TECHNIQUE: After the intravenous administration of 11.5 mCi Tc 99m Sestamibi - Cardiolite resting SP ECT images acquired 49 minutes post injection. The patient received 0.4mg Lexiscan, 27.4 mCi Tc 99m Sestamibi - Stress images obtained [address] injection FINDINGS: Review of stress and rest SPECT images demonstrates no reversible perfusion abnormality. Mild approx imately 3 segment defect is seen within the mid inferoseptal wall in the distribution of the right co ronary artery. No GI or diaphragmatic attenuation is seen on the raw data images. There is also hypok inesis of the inferior wall. Findings are indicative of prior infarct. No area infarct ischemia is de monstrated. Gated analysis shows normal wall motion with an estimated left ventricular ejection fract ion of 53 %. TID is calculated within normal limits at 1.02. IMPRESSION: 1. No scintigraphic evidence for reversible ischemia. 2. 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 3. Estimated left ventricular ejection fraction of 53%.
--- NOTE | 2017-10-02 15:29 | EST ---
EXERCISE STRESS AGE: 52 SEX: M HT: 6'1" WT: 255 PROTOCOL: Lexiscan Cardiolite Stress Test HEART RATE REST: 81 BLOOD PRESSURE REST: 110/84 MAXIMUM HEART RATE ACHIEVED: 102 MAXIMUM BLOOD PRESSURE: 114/82 INDICATIONS: Chest pain. CLINICAL INFORMATION: STRESS DATA: Pretesting physical examination showed a heart rate of 81, pressure is 110/84 mmHg. Baseline EKG showed sinus mechanism. A 0.4 mg of Lexiscan was given to the patient over 15 seconds per protocol. Max heart rate was 102 beats per minute and maximum pressure was 114/82 mmHg. Clinically, the patient did not have any symptoms of chest pain or discomfort and the EKG did not show any significant ST or T-wave abnormalities consistent with ischemia. CONCLUSION: 1. Nondiagnostic electrocardiogram stress testing in response to Lexiscan. 2. Please follow up on the Cardiolite portion on separate report from the Radiology Department. MMODL / IJN: [id number] /
== END | disposition home or self-care (01) ==
LOC: RADNMMAIN 07:10
PROVIDERS: ATTEND Family Medicine
DX: I10 Essential (primary) hypertension (principal); R07.9 Chest pain, unspecified
CPT/HCPCS: 93017; 78452; A9500; J2785

== ENCOUNTER → 2019-07-16 | Outpatient (CLI) | payer OTHER ==
[2019-07-16 15:25] LABS: Basophils # (A) 0.1 k/uL (0-0.2); Basophils % (A) 1 %; Eosinophils # (A) 0.4 k/uL (0-0.7); Eosinophils % (A) 5 %; HCT 48.2 % (39.0-53.0); Lymphocytes # (A) 1.5 k/uL (1.0-4.8); Lymphocytes % (A) 20 %; MCH 30.5 pg (25.0-35.0); MCHC 33.2 g/dL (31.0-37.0); MCV 91.7 fL (80.0-100.0); Mean Platelet Volume 7.5; Monocytes # (A) 0.4 k/uL (0-1.0); Monocytes % (A) 5 %; Neutrophils # (A) 5.3 k/uL (1.3-7.7); Neutrophils % (A) 68 %; Platelet Count 226 k/uL (150-450); RBC 5.26 m/uL (4.30-5.90); RDW 13.4 % (11.5-15.5); WBC 7.8 k/uL (3.8-10.6)
--- NOTE | 2019-07-16 20:29 | CT ---
EXAMINATION TYPE: CT chest wo con DATE OF EXAM: 07/16/2019 COMPARISON: None HISTORY: asthma, bronchitis CT DLP: 591.7 mGycm, Automated exposure control for dose reduction was used. CONTRAST: Performed injected with 0 mL of Isovue 300. TECHNIQUE: Axial images were obtained at 5 mm thick sections. Reconstructed images are reviewed on [employer] computer in the coronal plane. FINDINGS: Portion of the thyroid visualized is normal. No suspicious lung nodules or focal infiltrates are present. No enlarged mediastinal or hilar adenopathy is evident. The ascending aorta diameter at the level o f the main pulmonary artery is 3.6 cm. The main pulmonary artery diameter at the bifurcation is 2.[address] sections are obtained through the upper abdomen. There are couple of calcified granuloma w ithin the spleen. IMPRESSIONS: 1. Normal Chest CT.
== END | disposition home or self-care (01) ==
LOC: RADCTMAIN 14:10
PROVIDERS: ATTEND Internal Medicine Pulmonary Disease
DX: J45.909 Unspecified asthma, uncomplicated (principal); G47.33 Obstructive sleep apnea (adult) (pediatric); E66.9 Obesity, unspecified; I10 Essential (primary) hypertension; R06.83 Snoring; R05 Cough; R53.83 Other fatigue
CPT/HCPCS: 36415; 71250; 82103; 82104; 82785; 85025; 86001; 86003; 86606; 86609

== ENCOUNTER 2021-05-31 07:15 | Inpatient (IN) | payer OTHER ==
[2021-05-31] MEDS ORDERED: HYDROmorphone 0.5 MG/0.5 ML SYRINGE IVP STA (07:32)
[2021-05-31] MEDS ORDERED: PANTOPRAZOLE 40 MG/10 ML VIAL IVP STA (07:32)
[2021-05-31] MEDS ORDERED: SODIUM CHLORIDE 0.9% 500 ML 500 ML IV STA (07:32)
[2021-05-31 07:46] LABS: Basophils # (A) 0.1 k/uL (0-0.2); Basophils % (A) 1 %; Eosinophils # (A) 0.3 k/uL (0-0.7); Eosinophils % (A) 4 %; HCT 53.3 % (39.0-53.0); HGB 17.7 gm/dL (13.0-17.5); Lymphocytes # (A) 1.2 k/uL (1.0-4.8); Lymphocytes % (A) 14 %; MCH 31.5 pg (25.0-35.0); MCHC 33.2 g/dL (31.0-37.0); MCV 94.7 fL (80.0-100.0); Mean Platelet Volume 7.9; Monocytes # (A) 0.5 k/uL (0-1.0); Monocytes % (A) 6 %; Neutrophils # (A) 6.2 k/uL (1.3-7.7); Neutrophils % (A) 74 %; Platelet Count 211 k/uL (150-450); RBC 5.63 m/uL (4.30-5.90); RDW 13.6 % (11.5-15.5); WBC 8.3 k/uL (3.8-10.6)
[2021-05-31 07:55] LABS: Partial Thromboplastin Time 22.9 sec (22.0-30.0); Prothrombin Time 10.6 sec (9.0-12.0)
[2021-05-31 07:59] LABS: Calcium 9.3 mg/dL (8.4-10.2); Total Bilirubin 0.9 mg/dL (0.2-1.3)
--- NOTE | 2021-05-31 08:04 | ED ---
General Adult HPI - General Chief complaint: Abdominal Pain Stated complaint: Abd pain Time Seen by Provider: 05/31/21 07:18 Source: patient, EMS, RN notes reviewed, old records reviewed Mode of arrival: EMS Limitations: no limitations - History of Present Illness Initial comments: 55-year-old male presenting for abdominal pain. Pain is been intermittent over the past several months. Acutely worsened around 4 AM this morning. He describes it as periumbilical. He states is always there but does intensify. He states he's had 3 bowel movements this morning. No current vomiting. No fever. Patient initially attributed this to milk but has been avoiding. - Related Data Home Medications Medication Instructions Recorded Confirmed Atorvastatin [Lipitor] 20 mg PO DAILY 09/11/16 05/31/21 Chlorthalidone [Hygroton] 25 mg PO DAILY 09/11/16 05/31/21 Montelukast [Singulair] 10 mg PO DAILY 09/11/16 05/31/21 Ramipril 2.5 mg PO DAILY 09/11/16 05/31/21 Sertraline [Zoloft] 100 mg PO DAILY 09/11/16 05/31/21 Apixaban [Eliquis] 5 mg PO BID 09/26/17 05/31/21 Previous Rx's Medication Instructions Recorded Metoprolol Tartrate [Lopressor] 50 mg PO BID #60 tab 09/28/17 Allergies Allergy/AdvReac Type Severity Reaction Status Date / Time No Known Allergies Allergy Verified 05/31/21 09:01 Review of Systems ROS Statement: Those systems with pertinent positive or pertinent negative responses have been documented in the HPI. ROS Other: All systems not noted in ROS Statement are negative. Past Medical History Past Medical History: Atrial Fibrillation, Asthma, Blood Disorder, Deep Vein Thrombosis (DVT), Hyperlipidemia, Hypertension, Pulmonary Embolus (PE) Additional Past Medical History / Comment(s): hx low protein s- clotting disorder, DVT R leg and pulmonary embolism R lung, RABIA and states he does not use his device at this time/needs a new mask, diverticulosis, benign polyps. History of Any Multi-Drug Resistant Organisms: None Reported Additional Past Surgical History / Comment(s): cardioversion x2, lymph node x 3 removed lt axillae-benign, colonoscopy with polypectomies. Past Anesthesia/Blood Transfusion Reactions: No Reported Reaction Past Psychological History: Depression Smoking Status: Former smoker Past Alcohol Use History: Occasional Past Drug Use History: None Reported - Past Family History Sister(s) Family Medical History: Deep Vein Thrombosis (DVT) Mother Family Medical History: Cancer Additional Family Medical History / Comment(s): Mother of lung cancer. She was a nonsmoker. 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 Father Family Medical History: Cancer Additional Family Medical History / Comment(s): Father of lung cancer. He was a smoker. General Exam Limitations: no limitations General appearance: alert, in no apparent distress Head exam: Present: atraumatic, normocephalic Eye exam: Present: normal appearance, PERRL ENT exam: Present: normal exam Neck exam: Present: normal inspection. Absent: tenderness, meningismus Respiratory exam: Present: normal lung sounds bilaterally. Absent: respiratory distress, wheezes Cardiovascular Exam: Present: tachycardia, irregular rhythm GI/Abdominal exam: Present: soft, distended, tenderness. Absent: guarding, rebound Extremities exam: Present: normal inspection, normal capillary refill. Absent: pedal edema Neurological exam: Present: alert, oriented X3, CN II-XII intact. Absent: motor sensory deficit Psychiatric exam: Present: normal affect, normal mood Skin exam: Present: warm, dry, intact. Absent: cyanosis, diaphoretic Course Vital Signs 05/31/21 05/31/21 05/31/21 07:18 08:05 08:57 Temperature 98.0 F Pulse Rate 82 110 H 117 H Respiratory 18 18 18 Rate Blood Pressure 156/123 137/105 133/81 O2 Sat by Pulse 99 97 97 Oximetry 05/31/21 09:25 Temperature 98.1 F Pulse Rate 120 H Respiratory 16 Rate Blood Pressure 132/98 O2 Sat by Pulse 96 Oximetry EKG Findings - EKG Comments: EKG Findings:: EKG: Atrial fibrillation with RVR, rate of 123, QRS duration 70, QTC 455, no ST segment elevation. Medical Decision Making - Medical Decision Making 55-year-old male with abdominal pain, distention. Patient's had intermittent pain for several months but this acutely worsened. He is moderately distended with central abdominal tenderness. Workup is initiated. Patient has normal CBC, normal CMP. CT showing partial bowel obstruction, possible intra-abdominal mass. Additionally the patient has not been able to take his home medications and is in atrial fibrillation with RVR. He started on Cardizem for rate control. I did discuss case with Dr. Sanchez who will admit. Gen. surgery is placed on consult. - Lab Data Result diagrams: 05/31/21 07:38 05/31/21 07:38 Lab Results 05/31/21 05/31/21 05/31/21 Range/Units 07:38 07:38 07:38 WBC 8.3 (3.8-10.6) k/uL RBC 5.63 (4.30-5.90) m/uL Hgb 17.7 H (13.0-17.5) gm/dL Hct 53.3 H (39.0-53.0) % MCV 94.7 (80.0-100.0) fL MCH 31.5 (25.0-35.0) pg MCHC 33.2 (31.0-37.0) g/dL RDW 13.6 (11.5-15.5) % Plt Count 211 (150-450) k/uL MPV 7.9 Neutrophils % 74 % Lymphocytes % 14 % Monocytes % 6 % Eosinophils % 4 % Basophils % 1 % Neutrophils # 6.2 (1.3-7.7) k/uL Lymphocytes # 1.2 (1.0-4.8) k/uL Monocytes # 0.5 (0-1.0) k/uL Eosinophils # 0.3 (0-0.7) k/uL Basophils # 0.1 (0-0.2) k/uL PT (9.0-12.0) sec INR (<1.2) APTT (22.0-30.0) sec Sodium 137 (137-145) mmol/L Potassium 5.1 (3.5-5.1) mmol/L Chloride 105 (98-107) mmol/L Carbon Dioxide 24 (22-30) mmol/L Anion Gap 8 mmol/L BUN 12 (9-20) mg/dL Creatinine 1.09 (0.66-1.25) mg/dL Est GFR (CKD-EPI)AfAm 88 (>60 ml/min/1.73 sqM) Est GFR (CKD-EPI)NonAf 76 (>60 ml/min/1.73 sqM) Glucose 129 H (74-99) mg/dL Plasma Lactic Acid Juan Antonio 1.9 (0.7-2.0) mmol/L Calcium 9.3 (8.4-10.2) mg/dL Total Bilirubin 0.9 (0.2-1.3) mg/dL AST 35 (17-59) U/L ALT 24 (4-49) U/L Alkaline Phosphatase 75 (38-126) U/L Troponin I (0.000-0.034) ng/mL Total Protein 7.7 (6.3-8.2) g/dL Albumin 4.1 (3.5-5.0) g/dL Amylase 50 (30-110) U/L Lipase 113 (23-300) U/L 05/31/21 05/31/21 Range/Units 07:38 07:38 WBC (3.8-10.6) k/uL RBC (4.30-5.90) m/uL Hgb (13.0-17.5) gm/dL Hct (39.0-53.0) % MCV (80.0-100.0) fL MCH (25.0-35.0) pg MCHC (31.0-37.0) g/dL RDW (11.5-15.5) % Plt Count (150-450) k/uL MPV Neutrophils % % Lymphocytes % % Monocytes % % Eosinophils % % Basophils % % Neutrophils # (1.3-7.7) k/uL Lymphocytes # (1.0-4.8) k/uL Monocytes # (0-1.0) k/uL Eosinophils # (0-0.7) k/uL Basophils # (0-0.2) k/uL PT 10.6 (9.0-12.0) sec INR 1.0 (<1.2) APTT 22.9 (22.0-30.0) sec Sodium (137-145) mmol/L Potassium (3.5-5.1) mmol/L Chloride (98-107) mmol/L Carbon Dioxide (22-30) mmol/L Anion Gap mmol/L BUN (9-20) mg/dL Creatinine (0.66-1.25) mg/dL Est GFR (CKD-EPI)AfAm (>60 ml/min/1.73 sqM) Est GFR (CKD-EPI)NonAf (>60 ml/min/1.73 sqM) Glucose (74-99) mg/dL Plasma Lactic Acid Juan Antonio (0.7-2.0) mmol/L Calcium (8.4-10.2) mg/dL Total Bilirubin (0.2-1.3) mg/dL AST (17-59) U/L ALT (4-49) U/L Alkaline Phosphatase (38-126) U/L Troponin I <0.012 (0.000-0.034) ng/mL Total Protein (6.3-8.2) g/dL Albumin (3.5-5.0) g/dL Amylase (30-110) U/L Lipase (23-300) U/L Critical Care Time Critical Care Time: Yes Total Critical Care Time: 35 Disposition Clinical Impression: Small bowel obstruction, Atrial fibrillation with RVR Disposition: ADMITTED IP TO THIS HOSP Condition: Stable Is patient prescribed a controlled substance at d/c from ED?: No Referrals: Gin Flores MD [Primary Care Provider] - 1-2 days Decision to Admit Reason: Admit from EC Decision Date: 05/31/21 Decision Time: 09:29
[2021-05-31 08:05] LABS: Albumin 4.1 g/dL (3.5-5.0); Potassium 5.1 mmol/L (3.5-5.1); Total Protein 7.7 g/dL (6.3-8.2)
[2021-05-31] MEDS ORDERED: HYDROmorphone 1 MG/ML 1 ML SYRINGE IVP STA (08:30)
--- NOTE | 2021-05-31 09:02 | CT ---
EXAMINATION TYPE: CT abdomen pelvis w con DATE OF EXAM: 05/31/2021 COMPARISON: None. HISTORY: Abdominal pain, history of diveticulitis CT DLP: 2149.7 mGycm, Automated Exposure Control for Dose Reduction was Utilized. CONTRAST: CT scan of the abdomen and pelvis is performed without oral but with IV Contrast, patient injected wi th 100 ml mL of Isovue 300. FINDINGS: LUNG BASES: No significant abnormality is appreciated. LIVER/GB: Visualized liver is heterogeneously hypodense consistent with diffuse fatty infiltration.. No biliary dilatation noted. PANCREAS: No significant abnormality is seen. SPLEEN: Single 4 to 5 mm calcification in the spleen axial image 32 presumed benign. ADRENALS: No significant abnormality is seen. KIDNEYS: Satisfactory cortical medullary uptake and excretion without hydronephrosis seen bilaterally . BOWEL: Suboptimal evaluation ball without enteric contrast. No suspicious dilatation of stomach or du odenal sweep. Some small bowel loops in the central lower abdomen are fecal filled and prominent trinity uring up to 2.8 cm in diameter. There is mild fat stranding in the central mesentery of the right mid to lower abdomen. Normal-appearing appendix from the cecum is present. PROSTATE/SEMINAL VESICLES: No gross abnormality seen. LYMPH NODES: In the mid to lower right abdominal mesentery there is abnormal soft tissue lesion measu ring 2.2 x 1.4 cm coronal image 39 corresponding to axial image 49 could reflect abnormal mass or anette nopathy. Terminal ileum shows no abnormal distention. Just proximal to this there is some fecal mater ial noted. Ileal loops proximal to this are nondilated in the peripheral right abdomen. Colon shows p oor distention with mild diffuse wall thickening and diverticula in the left and sigmoid colon. No CT evidence for acute diverticulitis currently. OSSEOUS STRUCTURES: No significant abnormality is seen. OTHER: No significant additional abnormality is seen. IMPRESSION: Distal colonic diverticula without CT evidence for acute diverticulitis. Findings suggest a focal partial distal small bowel obstruction. I am concerned for central mid abdominal mass with s urrounding fat stranding at site of the partial proximal small bowel obstruction. Neoplasm such as GI ST tumor would be in differential. Advise GI follow-up.
[2021-05-31] MEDS ORDERED: SODIUM CHLORIDE 0.9% 500 ML 500 ML IV ONE (09:03)
[2021-05-31] MEDS ORDERED: DILTIAZEM DRIP BOLUS FROM BAG 1 MG SOLN IV ONE (09:12)
[2021-05-31] MEDS ORDERED: NALOXONE 0.4 MG/ML 1 ML VIAL IV PRN (09:26)
[2021-05-31] MEDS ORDERED: HYDROmorphone 0.5 MG/0.5 ML SYRINGE IVP PRN (09:26)
[2021-05-31] MEDS ORDERED: HYDROmorphone 1 MG/ML 1 ML SYRINGE IVP PRN (09:26)
[2021-05-31] MEDS: DILTIAZEM 125 MG in SODIUM CHLORIDE 0.9% 100 ML IV SCH (09:38)
[2021-05-31] MEDS: SODIUM CHLORIDE 0.9% 1,000 ML IV SCH ×2 (10:11→21:35)
[2021-05-31 11:11] LABS: Appearance,Urine Clear (Clear); Bilirubin,Urine Negative (Negative); Blood,Urine Negative (Negative); Color,Urine Yellow; Glucose,Urine (UA) Negative (Negative); Ketones,Urine Negative (Negative); Leukocyte Esterase,Urine Negative (Negative); Nitrite,Urine Negative (Negative); Protein,Urine Negative (Negative); Urobilinogen,Urine <2.0 mg/dL (<2.0)
[2021-05-31] MEDS: ONDANSETRON 4 MG/2 ML VIAL IVP PRN (11:20)
--- NOTE | 2021-05-31 11:35 | P.HPIM ---
<Julio Cesar Ji - Last Filed: 05/31/21 14:00> History of Present Illness H&P Date: 05/31/21 History of Presenting Illness: Patient is a very pleasant 55-year-old male with a past medical history of CAD with previous DE, atrial fibrillation on anticoagulation with Eliquis, history of DVT, history of PE, hypertension, hyperlipidemia, and diverticulitis. He presented to the emergency department with a chief complaint of abdominal pain with nausea. Patient reports recently experiencing intermittent epigastric abdominal pain over the past few months accompanied by changes in his taste stating "nothing seems to taste good anymore." He denied having any episodes of vomiting, fevers, lightheadedness, dizziness, diaphoresis, chest pain, palpitations, or shortness of breath. He does report having 3 loose bowel movements this morning, but denies noting any melena or hematochezia. Patient denies any history of bowel obstructions or inflammatory bowel disorders. He was seen and fully evaluated in the emergency department, CT abdomen and pelvis with contrast was completed revealing focal partial distal small bowel obstruction with concerns of central mid abdominal mass accompanied by surrounding fat stranding at site of the partial proximal small bowel obstruction and distal colonic diverticula, no evidence of acute diverticulitis. Lab work unremarkable with the exception of polycythemia with hemoglobin of 17.7. Urinalysis negative for blood or infection. While in the emergency Department patient became tachycardic, and EKG was completed revealing atrial fibrillation with RVR at 123 bpm. Patient was given a Cardizem bolus and started on Cardizem infusion. Patient admitted under our services with consultation to general surgery and cardiology. Review of systems: Pertinent positives and negatives as discussed in HPI, a complete review of systems was performed and all other systems are negative. Physical exam: Vital signs reviewed and stable at the exception of tachycardic rate. General: Nontoxic, no distress and appears stated age. Derm: Skin warm and dry, normal coloration for ethnicity. Head: Atraumatic, normocephalic and symmetric. Eyes: EOMs intact, no lid lag, and anicteric sclera Mouth: no lip lesions, mucus membranes moist Cardiovascular: Irregularly irregular rhythm, tachycardic rate, normal S1S2, no murmur, positive posterior tibial pulses bilaterally, and cap refill < 2 seconds. Lungs: Respirations even, regular, and unlabored on room air. Lungs CTA bilaterally, no rhonchi, no rales, no wheezing, and no accessory muscle usage. Abdominal: Obese abdomen, soft, epigastric tenderness upon palpation, no guarding, no appreciable organomegaly Ext: ROM intact. No gross muscle atrophy, no edema, no contractures Neuro: Speech clear, face symmetrical and CN II-XII grossly intact with no noted focal neuro deficits Psych: Alert and oriented to person, place, time, and situation. Appropriate and pleasant affect. Assessment and Plan of Care: Small bowel obstruction CT findings concerning for Central mid abdominal mass accompanied by fat stranding -CT abdomen and pelvis with contrast was completed revealing focal partial distal small bowel obstruction with concerns of central mid abdominal mass accompanied by surrounding fat stranding at site of the partial proximal small bowel obstruction and distal colonic diverticula, no evidence of acute diver ticulitis -Gen. surgery consulted, appreciate recommendations -NPO until diet advanced by general surgery -Gentle hydration with IV fluids -Symptomatic care and pain management -Zofran as needed for nausea -Dilaudid as needed for pain -Hold Eliquis and place patient on Heparin infusion pending possible surgery, May be taken off of Heparin infusion and resume Eliquis once cleared by general surgery. Atrial fibrillation with RVR History of DVT and PE -Continue Cardizem infusion -Telemetry monitoring -Consult to cardiology -Hold Eliquis and place patient on Heparin infusion pending possible surgery, May be taken off of Heparin infusion and resume Eliquis once cleared by general surgery. Hypertension -Monitor vital signs and Continue daily medication regimen with metoprolol tartrate and ramipril. Hyperlipidemia -Continue daily medication regimen with atorvastatin 20 mg daily. The patient is admitted with an anticipated greater than 2 midnight stay for evaluation of partial small bowel obstruction, abdominal mass, and A. fib RVR. CODE STATUS: Full code DVT prophylaxis: Heparin infusion, may resume Eliquis once cleared by Gen Surg Discussed with: Patient and RN Anticipated discharge date: Clinical course to determine Anticipated discharge place: Home A total of 45 minutes was spent on the care of this complex patient more than 50% of the time was spent in counseling and care coordination. Past Medical History Past Medical History: Atrial Fibrillation, Asthma, Blood Disorder, Deep Vein Thrombosis (DVT), Hyperlipidemia, Hypertension, Pulmonary Embolus (PE) Additional Past Medical History / Comment(s): hx low protein s- clotting disorder, DVT R leg and pulmonary embolism R lung, RABIA and states he does not use his device at this time/needs a new mask, diverticulosis, benign polyps. History of Any Multi-Drug Resistant Organisms: None Reported Additional Past Surgical History / Comment(s): cardioversion x2, lymph node x 3 removed lt axillae-benign, colonoscopy with polypectomies. Past Anesthesia/Blood Transfusion Reactions: No Reported Reaction Past Psychological History: Depression Smoking Status: Former smoker Past Alcohol Use History: Occasional Past Drug Use History: None Reported - Past Family History Sister(s) Family Medical History: Deep Vein Thrombosis (DVT) Mother Family Medical History: Cancer Additional Family Medical History / Comment(s): Mother of lung cancer. She was a nonsmoker. 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 Father Family Medical History: Cancer Additional Family Medical History / Comment(s): Father of lung cancer. He was a smoker. Medications and Allergies Home Medications Medication Instructions Recorded Confirmed Type Atorvastatin [Lipitor] 20 mg PO DAILY 09/11/16 05/31/21 History Chlorthalidone [Hygroton] 25 mg PO DAILY 09/11/16 05/31/21 History Montelukast [Singulair] 10 mg PO DAILY 09/11/16 05/31/21 History Ramipril 2.5 mg PO DAILY 09/11/16 05/31/21 History Sertraline [Zoloft] 100 mg PO DAILY 09/11/16 05/31/21 History Apixaban [Eliquis] 5 mg PO BID 09/26/17 05/31/21 History Metoprolol Tartrate [Lopressor] 50 mg PO BID #60 tab 09/28/17 05/31/21 Rx Allergies Allergy/AdvReac Type Severity Reaction Status Date / Time No Known Allergies Allergy Verified 05/31/21 09:01 Physical Exam Vitals: Vital Signs Temp Pulse Resp BP Pulse Ox 05/31/21 11:03 115 H 16 121/89 96 05/31/21 10:16 112 H 16 116/82 96 05/31/21 09:25 98.1 F 120 H 16 132/98 96 05/31/21 08:57 117 H 18 133/81 97 05/31/21 08:05 110 H 18 137/105 97 05/31/21 07:18 98.0 F 82 18 156/123 99 Intake and Output 05/30/21 05/31/21 05/31/21 22:59 06:59 14:59 Other: Weight 124.738 kg Results CBC & Chem 7: 05/31/21 07:38 05/31/21 07:38 Labs: Abnormal Lab Results - Last 24 Hours (Table) 05/31/21 05/31/21 Range/Units 07:38 07:38 Hgb 17.7 H (13.0-17.5) gm/dL Hct 53.3 H (39.0-53.0) % Glucose 129 H (74-99) mg/dL <Loy Johnson - Last Filed: 06/01/21 16:23> History of Present Illness agree with note and plan Physical Exam Vitals: Vital Signs Temp Pulse Pulse Resp BP BP Pulse Ox 06/01/21 11:50 98.4 F 66 16 100/58 98 06/01/21 08:50 97.8 F 61 16 114/74 96 06/01/21 03:56 98.1 F 71 18 119/73 95 06/01/21 01:18 73 06/01/21 00:00 98.6 F 73 18 125/73 95 05/31/21 21:20 98.2 F 93 20 150/95 96 05/31/21 20:52 98 F 92 15 133/86 99 05/31/21 19:53 89 15 125/88 97 05/31/21 17:57 91 16 110/90 94 L Intake and Output 06/01/21 06/01/21 06/01/21 06:59 14:59 22:59 Intake Total 185.104 399.775 Balance 185.104 399.775 Intake: Intake, IV Titration 185.104 399.775 Amount Diltiazem 125 mg In 95.917 Sodium Chloride 0.9% 100 ml @ 5 MG/HR 5 mls/hr IV .Q24H [facility] Rx#:[id number] Heparin Sod,Pork in 0.45% 89.187 99.775 NaCl 25,000 unit In 0.45 % NaCl 1 250ml.bag @ 8 UNITS/KG/HR 9.979 mls/hr IV .Q24H [facility] Rx#: [id number] Sodium Chloride 0.9% 1, 300 000 ml @ 100 mls/hr IV . Q10H [facility] Rx#:[id number] Other: Voiding Method Toilet Toilet # Voids 1 2 # Bowel Movements 4 Weight 129.1 kg Results CBC & Chem 7: 05/31/21 07:38 05/31/21 07:38 Labs: Abnormal Lab Results - Last 24 Hours (Table) 06/01/21 06/01/21 Range/Units 01:45 08:31 APTT 37.7 H 44.1 H (22.0-30.0) sec
[2021-05-31 12:42] LABS: Specific Gravity,Urine >1.050 (1.001-1.035)
[2021-05-31] MEDS: HEPARIN SOD,PORK IN 0.45% NACL 25,000 UNIT in 0.45% NACL 1 250ML.BAG IV SCH (14:22)
[2021-05-31] MEDS ORDERED: DICYCLOMINE 10 MG/ML 2 ML AMP IM STA (14:25)
[2021-05-31] MEDS: MORPHINE SULFATE 4 MG/ML SYRINGE IV PRN ×2 (14:45→20:40)
--- NOTE | 2021-05-31 17:40 | P.GSCN ---
History of Present Illness Consult date: 05/31/21 Reason for Consult: Abdominal pain History of present illness: 55-year-old male comes to the ER with complaints of abdominal pain that started in the middle of the night. He says he has had these episodes going on for the last 6-8 weeks. Pain is described as sharp stabbing may be crampy at times. He has had episodes of nausea and vomiting with this. He went to the ER at [facility] previously. No definite etiology was found. Patient has a history of a large sigmoid polyp removed during endoscopy 4.[address] [place]. 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 He states he has had follow-up colonoscopy at [facility] but he is not sure how long ago. That was performed by Dr. Armstrong. Patient is on eloquis at home for A. fib and history of DVT and PE. Patient with history of previous CO and also states he was told in the past he has diverticulitis. Patient's appetite is somewhat decreased. No rectal bleeding or melena. Some intermittent loose stools. White blood cell count and remainder of lab work relatively unimpressive. Patient underwent CAT scan abdomen and pelvis. The patient has mild proximal small bowel dilation. The transition point seems tapered and does not appear consistent with mass or adhesions. The appearance is more consistent with ileus. Unfortunately there is a 2.3 cm stellate appearance nodule at the base of the small bowel and right colon mesentery. This seems to be in proximity to the right colic artery. Etiology unclear but somewhat worrisome for metastatic node, carcinoid, or gist tumor. Review of Systems The patient denies any acute changes in vision or hearing, no dysphagia or odynophagia, no chest pain or shortness of breath, no dysuria or hematuria, no headache, no runny nose, no rectal bleeding or melena, no unexplained weight loss Past Medical History Past Medical History: Atrial Fibrillation, Asthma, Blood Disorder, Deep Vein Thrombosis (DVT), Hyperlipidemia, Hypertension, Pulmonary Embolus (PE) Additional Past Medical History / Comment(s): hx low protein s- clotting disorder, DVT R leg and pulmonary embolism R lung, RABIA and states he does not use his device at this time/needs a new mask, diverticulosis, benign polyps. History of Any Multi-Drug Resistant Organisms: None Reported Additional Past Surgical History / Comment(s): cardioversion x2, lymph node x 3 removed lt axillae-benign, colonoscopy with polypectomies. Past Anesthesia/Blood Transfusion Reactions: No Reported Reaction Past Psychological History: Depression Smoking Status: Former smoker Past Alcohol Use History: Occasional Past Drug Use History: None Reported - Past Family History Sister(s) Family Medical History: Deep Vein Thrombosis (DVT) Mother Family Medical History: Cancer Additional Family Medical History / Comment(s): Mother of lung cancer. She was a nonsmoker. 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 Father Family Medical History: Cancer Additional Family Medical History / Comment(s): Father of lung cancer. He was a smoker. Medications and Allergies Home Medications Medication Instructions Recorded Confirmed Type Atorvastatin [Lipitor] 20 mg PO DAILY 09/11/16 05/31/21 History Chlorthalidone [Hygroton] 25 mg PO DAILY 09/11/16 05/31/21 History Montelukast [Singulair] 10 mg PO DAILY 09/11/16 05/31/21 History Ramipril 2.5 mg PO DAILY 09/11/16 05/31/21 History Sertraline [Zoloft] 100 mg PO DAILY 09/11/16 05/31/21 History Apixaban [Eliquis] 5 mg PO BID 09/26/17 05/31/21 History Metoprolol Tartrate [Lopressor] 50 mg PO BID #60 tab 09/28/17 05/31/21 Rx Allergies Allergy/AdvReac Type Severity Reaction Status Date / Time No Known Allergies Allergy Verified 05/31/21 09:01 Surgical - Exam Vital Signs Temp Pulse Resp BP Pulse Ox 98.0 F 82 18 156/123 99 05/31/21 07:18 05/31/21 07:18 05/31/21 07:18 05/31/21 07:18 05/31/21 07:18 Physical exam: General: Well-developed, well-nourished HEENT: Normocephalic, sclerae nonicteric Abdomen: Mild distention, mild diffuse tenderness, no rebound or guarding Extremities: No edema Neuro: Alert and oriented Results - Labs 05/31/21 07:38 05/31/21 07:38 Abnormal Lab Results - Last 24 Hours (Table) 05/31/21 05/31/2122 Range/Units 07:38 07:38 09:06 Hgb 17.7 H (13.0-17.5) gm/dL Hct 53.3 H (39.0-53.0) % Glucose 129 H (74-99) mg/dL Ur Specific [place] >1.050 H (1.001-1.035) Diabetes panel 05/31/21 Range/Units 07:38 Sodium 137 (137-145) mmol/L Potassium 5.1 (3.5-5.1) mmol/L Chloride 105 (98-107) mmol/L Carbon Dioxide 24 (22-30) mmol/L BUN 12 (9-20) mg/dL Creatinine 1.09 (0.66-1.25) mg/dL Glucose 129 H (74-99) mg/dL Calcium 9.3 (8.4-10.2) mg/dL AST 35 (17-59) U/L ALT 24 (4-49) U/L Alkaline Phosphatase 75 (38-126) U/L Total Protein 7.7 (6.3-8.2) g/dL Albumin 4.1 (3.5-5.0) g/dL Calcium panel 05/31/21 Range/Units 07:38 Calcium 9.3 (8.4-10.2) mg/dL Albumin 4.1 (3.5-5.0) g/dL Pituitary panel 05/31/21 Range/Units 07:38 Sodium 137 (137-145) mmol/L Potassium 5.1 (3.5-5.1) mmol/L Chloride 105 (98-107) mmol/L Carbon Dioxide 24 (22-30) mmol/L BUN 12 (9-20) mg/dL Creatinine 1.09 (0.66-1.25) mg/dL Glucose 129 H (74-99) mg/dL Calcium 9.3 (8.4-10.2) mg/dL Adrenal panel 05/31/21 Range/Units 07:38 Sodium 137 (137-145) mmol/L Potassium 5.1 (3.5-5.1) mmol/L Chloride 105 (98-107) mmol/L Carbon Dioxide 24 (22-30) mmol/L BUN 12 (9-20) mg/dL Creatinine 1.09 (0.66-1.25) mg/dL Glucose 129 H (74-99) mg/dL Calcium 9.3 (8.4-10.2) mg/dL Total Bilirubin 0.9 (0.2-1.3) mg/dL AST 35 (17-59) U/L ALT 24 (4-49) U/L Alkaline Phosphatase 75 (38-126) U/L Total Protein 7.7 (6.3-8.2) g/dL Albumin 4.1 (3.5-5.0) g/dL Assessment and Plan (1) Abdominal pain Narrative/Plan: 55-year-old male with abdominal pain and CAT scan findings as described. Will obtain small bowel series and this will be ordered for tomorrow. If no small bowel mass or obstruction is seen we'll try to review the records from his most recent colonoscopy and would consider repeating colonoscopy to see if this mesenteric nodule could be associated with a colon neoplasm. Will resume clear liquids. Continue to hold oral anticoagulants. Agree with heparin drip. Will follow. Current Visit: Yes Status: Acute Code(s): R10.9 - UNSPECIFIED ABDOMINAL PAIN SNOMED Code(s): 78398298
[2021-05-31] MEDS: HEPARIN SODIUM 1,000 UN/ML (10ML VL) IV PRN (20:31)
[2021-05-31] MEDS: METOPROLOL TARTRATE 50 MG TAB PO SCH (20:52)
[2021-06-01] MEDS: HEPARIN SODIUM 1,000 UN/ML (10ML VL) IV PRN (02:58)
[2021-06-01] MEDS: SODIUM CHLORIDE 0.9% 1,000 ML IV SCH ×3 (04:49→19:42)
[2021-06-01] MEDS: DILTIAZEM 125 MG in SODIUM CHLORIDE 0.9% 100 ML IV SCH (04:49)
[2021-06-01] MEDS: PANTOPRAZOLE 40 MG/10 ML VIAL IVP SCH (08:56)
[2021-06-01] MEDS: SERTRALINE 100 MG TAB PO SCH (08:56)
[2021-06-01] MEDS: lisinopriL 10 MG TAB PO SCH (08:56)
[2021-06-01] MEDS: MONTELUKAST 10 MG TAB PO SCH (08:56)
[2021-06-01] MEDS: METOPROLOL TARTRATE 50 MG TAB PO SCH ×2 (08:56→19:39)
[2021-06-01] MEDS: ATORVASTATIN 20 MG TAB PO SCH (08:56)
[2021-06-01 09:03] LABS: Partial Thromboplastin Time 44.1 sec (22.0-30.0); Prothrombin Time 10.7 sec (9.0-12.0)
--- NOTE | 2021-06-01 11:51 | P.CRDCN ---
History of Present Illness History of present illness: HISTORY OF PRESENTING ILLNESS This is a pleasant 55-year-old male past medical history significant for chronic persistent atrial fibrillation with prior unsuccessful cardioversions on Xarelto , hypertension and hyperlipidemia .He follows in the office with Dr. Andrews in [place]. We have been asked to see in consultation for atrial fibrillation with rapid ventricular response. Patient presents to the emergency department with complaints of abdominal pain and nausea. He states that he's been having abdominal pain and some mild nausea after one month, however, it was due to diet. He cut out dairy, but no improvement. He states over the past month it has progressively been getting worse. He did have a bowel movement yesterday morning. CT abdomen pelvis revealed distal colonic diverticuli, findings suggestive of focal partial distal small bowel obstruction, central mid abdominal mass with surrounding fat stranding outside of pressure proximal small bowel obstruction, neoplasm would be in differential. On admission patient was in atrial fibrillation with RVR heart rate 120s. Patient was started on IV Cardizem drip and IV heparin. His heart rates have improved currently in atrial fibrillation with heart rate in the 50s-70s. Patient denies any chest pain, palpitations, lightheadedness, dizziness, syncope or near syncope, symptoms of orthopnea or PND. Denies smoking or alcohol use. Patient denies any history of coronary artery disease, DC, stroke, diabetes. DIAGNOSTICS EKG reveals atrial fibrillation with rapid ventricular response, heart rate 123, no significant ST-T wave abnormalities Telemetry tracings indicate atrial fibrillation with heart rate in the 50s-70s Laboratory reviewed, WBC 8.3, hemoglobin 17.7, platelets 211, sodium 137, potassium 5.1, BUN 12, serum creatinine 1.0, troponin negative 1 Current home medications include Eliquis 5 mg twice a day, atorvastatin 20 mg daily, metoprolol tartrate 50 mg twice a day,Ramipril REVIEW OF SYSTEMS At the time of my exam: CONSTITUTIONAL: Denies fever or chills. CARDIOVASCULAR: Denies chest pain, shortness of breath, orthopnea, PND or palpitations. RESPIRATORY: Denies cough. GASTROINTESTINAL: Denies abdominal pain, diarrhea, constipation, nausea or vomiting. MUSCULOSKELETAL: Denies myalgias. NEUROLOGIC: Denies numbness, tingling, headacbe or weakness. ENDOCRINE: Denies fatigue, weight change, polydipsia or polyurina. GENITOURINARY: Denies burning, hematuria or urgency with micturation. HEMATOLOGIC: Denies history of anemia or bleeding. PHYSICAL EXAMINATION Blood pressure 114/74, heart rate 61, afebrile, oxygen saturations 96% on room air CONSTITUTIONAL: No apparent distress. HEENT: Head is normocephalic. Pupils are equal, round. Sclerae anicteric. Mucous membranes of the mouth are moist. No JVD. No carotid bruit. CHEST EXAMINATION: Lungs are clear to auscultation. No chest wall tenderness is noted on palpation or with deep breathing. HEART EXAMINATION: Irregular rate and rhythm. S1, S2 heard. No murmurs, gallops or rub. ABDOMEN: Soft, Tenderness to palpation to epigastric region. Positive bowel sounds. EXTREMITIES: 2+ peripheral pulses, no lower extremity edema and no calf tenderness. NEUROLOGIC EXAMINATION: Patient is awake, alert and oriented x3. ASSESSMENT Chronic persistant atrial fibrillation with RVR, on eliquis outpatient Small bowel obstruction Hypertension Hyperlipidemia PLAN We will obtain 2D echocardiogram Discontinue IV Cardizem Continue metoprolol tartrate 50mg BID, and atrovastatin and lisinopril Continue IV heparin drip, resume eliquis once cleared by general surgery Further recommendations based on clinical course Nurse Practitioner note has been reviewed, I agree with a documented findings and plan of care. Patient was seen and examined. Past Medical History Past Medical History: Atrial Fibrillation, Asthma, Blood Disorder, Deep Vein Thrombosis (DVT), Hyperlipidemia, Hypertension, Pulmonary Embolus (PE) Additional Past Medical History / Comment(s): hx low protein s- clotting disorder, DVT R leg and pulmonary embolism R lung, RABIA and states he does not use his device at this time/needs a new mask, diverticulosis, benign polyps. History of Any Multi-Drug Resistant Organisms: None Reported Additional Past Surgical History / Comment(s): cardioversion x2, lymph node x 3 removed lt axillae-benign, colonoscopy with polypectomies. Past Anesthesia/Blood Transfusion Reactions: No Reported Reaction Past Psychological History: Depression Smoking Status: Former smoker Past Alcohol Use History: Occasional Past Drug Use History: None Reported - Past Family History Sister(s) Family Medical History: Deep Vein Thrombosis (DVT) Mother Family Medical History: Cancer Additional Family Medical History / Comment(s): Mother of lung cancer. She was a nonsmoker. 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 Father Family Medical History: Cancer Additional Family Medical History / Comment(s): Father of lung cancer. He was a smoker. Medications and Allergies Home Medications Medication Instructions Recorded Confirmed Type Atorvastatin [Lipitor] 20 mg PO DAILY 09/11/16 05/31/21 History Chlorthalidone [Hygroton] 25 mg PO DAILY 09/11/16 05/31/21 History Montelukast [Singulair] 10 mg PO DAILY 09/11/16 05/31/21 History Ramipril 2.5 mg PO DAILY 09/11/16 05/31/21 History Sertraline [Zoloft] 100 mg PO DAILY 09/11/16 05/31/21 History Apixaban [Eliquis] 5 mg PO BID 09/26/17 05/31/21 History Metoprolol Tartrate [Lopressor] 50 mg PO BID #60 tab 09/28/17 05/31/21 Rx Allergies Allergy/AdvReac Type Severity Reaction Status Date / Time No Known Allergies Allergy Verified 05/31/21 09:01 Physical Exam Vitals: Vital Signs Temp Pulse Pulse Resp BP BP Pulse Ox 06/01/21 03:56 98.1 F 71 18 119/73 95 06/01/21 01:18 73 06/01/21 00:00 98.6 F 73 18 125/73 95 05/31/21 21:20 98.2 F 93 20 150/95 96 05/31/21 20:52 98 F 92 15 133/86 99 05/31/21 19:53 89 15 125/88 97 05/31/21 17:57 91 16 110/90 94 L 05/31/21 16:23 98 16 120/89 93 L 05/31/21 14:53 104 H 16 121/96 96 05/31/21 12:00 106 H 128/83 95 05/31/21 11:55 124 H 16 103/79 95 05/31/21 11:03 115 H 16 121/89 96 05/31/21 10:16 112 H 16 116/82 96 05/31/21 09:25 98.1 F 120 H 16 132/98 96 05/31/21 08:57 117 H 18 133/81 97 Intake and Output 05/31/21 06/01/21 06/01/21 22:59 06:59 14:59 Intake Total 661.038 185.104 Balance 661.038 185.104 Intake: Intake, IV Titration 61.038 185.104 Amount Diltiazem 125 mg In 95.917 Sodium Chloride 0.9% 100 ml @ 5 MG/HR 5 mls/hr IV .Q24H [facility] Rx#:[id number] Heparin Sod,Pork in 0.45% 61.038 89.187 NaCl 25,000 unit In 0.45 % NaCl 1 250ml.bag @ 8 UNITS/KG/HR 9.979 mls/hr IV .Q24H [facility] Rx#: [id number] Oral 600 Other: Voiding Method Toilet Toilet # Voids 1 Weight 129.1 kg Results 05/31/21 07:38 05/31/21 07:38 Coagulation 05/31/21 06/01/21 Range/Units 19:47 01:45 APTT 24.6 37.7 H (22.0-30.0) sec Current Medications Generic Name Dose Route Start Last Admin Trade Name Freq PRN Reason Stop Dose Admin Atorvastatin Calcium 20 mg 06/01/21 09:00 Atorvastatin 20 Mg Tab PO DAILY [facility] Heparin Sodium (Porcine) 0 unit 05/31/21 13:57 06/01/21 02:58 Heparin Sodium 1,000 Un/Ml (10ml Vl) IV 3,100 unit PER PROTOCOL PRN Administration Low PTT Protocol Hydromorphone HCl 1 mg 05/31/21 14:23 Hydromorphone 1 Mg/Ml 1 Ml Syringe IVP Q2H PRN Severe Pain Sodium Chloride 1,000 mls @ 100 mls/hr 05/31/21 09:30 06/01/21 04:49 Saline 0.9% IV 100 mls/hr .Q10H [facility] Administration Heparin Sodium/Sodium Chloride 250 mls @ 9.979 mls/hr 05/31/21 14:00 06/01/21 02:59 25,000 unit/ Sodium Chloride IV 13 units/kg/hr .Q24H [facility] 16.216 mls/hr Titration Protocol 8 UNITS/KG/HR Lisinopril 10 mg 06/01/21 09:00 Lisinopril 10 Mg Tab PO DAILY [facility] Metoprolol Tartrate 50 mg 05/31/21 21:00 05/31/21 20:52 Metoprolol Tartrate 50 Mg Tab PO 50 mg BID [facility] Administration Montelukast Sodium 10 mg 06/01/21 09:00 Montelukast 10 Mg Tab PO DAILY [facility] Morphine Sulfate 4 mg 05/31/21 14:28 05/31/21 20:40 Morphine Sulfate 4 Mg/Ml Syringe IV 4 mg Q2H PRN Administration Severe Pain Naloxone HCl 0.2 mg 05/31/21 09:26 Naloxone 0.4 Mg/Ml 1 Ml Vial IV Q2M PRN Opioid Reversal Ondansetron HCl 4 mg 05/31/21 09:26 05/31/21 11:20 Ondansetron 4 Mg/2 Ml Vial IVP 4 mg Q8HR PRN Administration Nausea And Vomiting Pantoprazole Sodium 40 mg 06/01/21 09:00 Pantoprazole 40 Mg/10 Ml Vial IVP DAILY [facility] Sertraline HCl 100 mg 06/01/21 09:00 Sertraline 100 Mg Tab PO DAILY [facility] Intake and Output 05/31/21 06/01/21 06/01/21 22:59 06:59 14:59 Intake Total 661.038 185.104 Balance 661.038 185.104 Intake: Intake, IV Titration 61.038 185.104 Amount Diltiazem 125 mg In 95.917 Sodium Chloride 0.9% 100 ml @ 5 MG/HR 5 mls/hr IV .Q24H [facility] Rx#:[id number] Heparin Sod,Pork in 0.45% 61.038 89.187 NaCl 25,000 unit In 0.45 % NaCl 1 250ml.bag @ 8 UNITS/KG/HR 9.979 mls/hr IV .Q24H [facility] Rx#: [id number] Oral 600 Other: Voiding Method Toilet Toilet # Voids 1 Weight 129.1 kg 05/31/21 07:38 05/31/21 07:38
--- NOTE | 2021-06-01 12:01 | FL ---
EXAMINATION TYPE: FL small bowel follow through DATE OF EXAM: 06/01/2021 CLINICAL HISTORY: Abnormal CT, pain with partial small bowel obstruction and/or ileus TECHNIQUE: A single contrast small bowel follow through is performed utilizing barium. 49 seconds of fluoro time and 17 images obtained. COMPARISON: CT abdomen and pelvis from yesterday FINDINGS: Tape Recorder Repairer image of the abdomen redemonstrates some paucity of bowel gas. Gas seen in nondisten ded stomach. Gas seen in slightly prominent small bowel loop left mid to lower abdomen though this is less prominent than prior. Exam slightly suboptimal due to patient's large body habitus and request to use Gastrografin which is diluted due to taste. The small bowel study shows normal transit to the colon in less than 30 minutes. There is a normal m ucosal fold pattern throughout the small bowel. There is no evidence of any stricture or filling def ect noted. No obvious intraluminal mass identified. IMPRESSION: No obstruction identified currently. This correlates with patient's improved symptoms or diminished pain from yesterday on discussion. There may be intraluminal lesion small bowel loop in the abdomen coronal image 25 and axial image 53 but this could not be well identified on small bowel series spot images due to above limitations, les s than optimal opacification of small bowel loops. Persistent suspicious mesenteric mass or lesion no nani also identified on CT.
[2021-06-01] MEDS: MORPHINE SULFATE 4 MG/ML SYRINGE IV PRN ×2 (15:18→23:58)
--- NOTE | 2021-06-01 16:07 | P.PN ---
Subjective Progress Note Date: 06/01/21 CHIEF COMPLAINT: Abdominal pain HISTORY OF PRESENT ILLNESS: Patient reports that he is feeling better. He is having bowel movements. Denies any nausea or vomiting. Surgical service is following regards to patient's abdominal pain. Patient small bowel follow- through showed no evidence of obstruction. There may be intraluminal lesion small bowel loops in the abdomen. But this could not be well identified on small bowel series due to above limitations, less than optimal opacification with small bowel loops. Persistent suspicious mesenteric mass or lesion noted identified on CT. Patient evaluated by cardiology regarding his chronic persistent atrial fibrillation. If currently held his Eliquis and have him on IV heparin. PHYSICAL EXAM: VITAL SIGNS: Reviewed. GENERAL: Well-developed in no acute distress. HEENT: No sclera icterus. Extraocular movements grossly intact. Moist buccal mucosa. Head is atraumatic, normocephalic. ABDOMEN: Soft. Nondistended. Nontender. NEUROLOGIC: Alert and oriented. Cranial nerves II through XII grossly intact. ASSESSMENT: 1. Abdominal pain improved with no evidence of small bowel obstruction on small bowel follow-through x-ray 2. Mesenteric nodule noted on CAT scan could be associated with a colon neoplasm. Small bowel follow-through did identify that there may be an intraluminal lesion in the small bowel loop in the abdomen PLAN: -Further recommendations forthcoming per surgeon regarding repeat colonoscopy -Place patient on regular diet for now -Continue supportive care Physician Consumer Lending Manager note has been reviewed by physician. Signing provider agrees with the documented findings, assessment, and plan of care. Objective - Vital Signs Vital signs: Vital Signs Temp 98.4 F 06/01/21 11:50 Pulse 66 06/01/21 11:50 Resp 16 06/01/21 11:50 BP 100/58 06/01/21 11:50 Pulse Ox 98 06/01/21 11:50 Intake & Output 05/31/21 06/01/21 06/01/21 18:59 06:59 18:59 Intake Total 846.142 399.775 Balance 846.142 399.775 Weight 124.738 kg 129.1 kg Intake: Intake, IV Titration 246.142 399.775 Amount Diltiazem 125 mg In 95.917 Sodium Chloride 0.9% 100 ml @ 5 MG/HR 5 mls/hr IV .Q24H [facility] Rx#:[id number] Heparin Sod,Pork in 0.45% 150.225 99.775 NaCl 25,000 unit In 0.45 % NaCl 1 250ml.bag @ 8 UNITS/KG/HR 9.979 mls/hr IV .Q24H [facility] Rx#: [id number] Sodium Chloride 0.9% 1, 300 000 ml @ 100 mls/hr IV . Q10H [facility] Rx#:[id number] Oral 600 Other: Voiding Method Toilet Toilet # Voids 1 2 # Bowel Movements 4 - Labs CBC & Chem 7: 05/31/21 07:38 05/31/21 07:38 Labs: Abnormal Lab Results - Last 24 Hours (Table) 06/01/21 06/01/21 Range/Units 01:45 08:31 APTT 37.7 H 44.1 H (22.0-30.0) sec
--- NOTE | 2021-06-01 16:53 | P.PN ---
<Julio Cesar Ji - Last Filed: 06/01/21 16:46> Subjective Progress Note Date: 06/01/21 Hospital course: Patient is a very pleasant 55-year-old male with a past medical history of CAD with previous [place], atrial fibrillation on anticoagulation with Eliquis, history of DVT, history of PE, hypertension, hyperlipidemia, and diverticulitis. He presented to the emergency department with a chief complaint of abdominal pain with nausea. Patient reports recently experiencing intermittent epigastric abdominal pain over the past few months accompanied by changes in his taste stating "nothing seems to taste good anymore." He denied having any episodes of vomiting, fevers, lightheadedness, dizziness, diaphoresis, chest pain, palpitations, or shortness of breath. He does report having 3 loose bowel movements this morning, but denies noting any melena or hematochezia. Patient denies any history of bowel obstructions or inflammatory bowel disorders. He was seen and fully evaluated in the emergency department, CT abdomen and pelvis with contrast was completed revealing focal partial distal small bowel obstruction with concerns of central mid abdominal mass accompanied by surrou nding fat stranding at site of the partial proximal small bowel obstruction and distal colonic diverticula, no evidence of acute diverticulitis. Lab work unremarkable with the exception of polycythemia with hemoglobin of 17.7. Urinalysis negative for blood or infection. While in the emergency Department patient became tachycardic, and EKG was completed revealing atrial fibrillation with RVR at 123 bpm. Patient was given a Cardizem bolus and started on Cardizem infusion. Patient admitted under our services with consultation to general surgery and cardiology. Physical exam: Patient seen and fully evaluated at bedside this morning. He reports im provement in abdominal pain. Currently denies having any nausea, vomiting, chest pain, palpitations or any other complaints. Patient does report having frequent loose bowel movements. He just completed small bowel series, awaiting radiologist's report. Vital signs reviewed and stable General: Nontoxic, no distress and appears stated age. Derm: Skin warm and dry, normal coloration for ethnicity. Head: Atraumatic, normocephalic and symmetric. Eyes: EOMs intact, no lid lag, and anicteric sclera Mouth: no lip lesions, mucus membranes moist Cardiovascular: Irregularly irregular rhythm, tachycardic rate, normal S1S2, no murmur, positive posterior tibial pulses bilaterally, and cap refill < 2 seconds. Lungs: Respirations even, regular, and unlabored on room air. Lungs CTA bilaterally, no rhonchi, no rales, no wheezing, and no accessory muscle usage. Abdominal: Obese abdomen, soft, epigastric tenderness upon palpation, no guarding, no appreciable organomegaly Ext: ROM intact. No gross muscle atrophy, no edema, no contractures Neuro: Speech clear, face symmetrical and CN II-XII grossly intact with no noted focal neuro deficits Psych: Alert and oriented to person, place, time, and situation. Appropriate and pleasant affect. Assessment and Plan of Care: Small bowel obstruction CT findings concerning for Central mid abdominal mass accompanied by fat stranding -CT abdomen and pelvis with contrast was completed revealing focal partial distal small bowel obstruction with concerns of central mid abdominal mass accompanied by surrounding fat stranding at site of the partial proximal small bowel obstruction and distal colonic diverticula, no evidence of acute diverticulitis -Patient undergoing small bowel series -Gen. surgery following, appreciate further recommendations. -Continue clear liquid diet until diet advanced by general surgery -Gentle hydration with IV fluids -Symptomatic care and pain management -Zofran as needed for nausea -Dilaudid as needed for pain -Hold Eliquis and place patient on Heparin infusion pending possible surgery, May be taken off of Heparin infusion and resume Eliquis once cleared by general surgery. Paroxysmal Atrial fibrillation with RVR History of DVT and PE -Cardizem infusion discontinued, patient to continue metoprolol at 50 mg twice daily -Telemetry monitoring -Cardiology following, appreciate further recommendations -Hold Eliquis and place patient on Heparin infusion pending possible surgery, May be taken off of Heparin infusion and resume Eliquis once cleared by general surgery. Hypertension -Monitor vital signs and Continue daily medication regimen with metoprolol tartrate and ramipril. Hyperlipidemia -Continue daily medication regimen with atorvastatin 20 mg daily. The patient is admitted with an anticipated greater than 2 midnight stay for evaluation of partial small bowel obstruction, abdominal mass, and A. fib RVR. CODE STATUS: Full code DVT prophylaxis: Heparin infusion, may resume Eliquis once cleared by Gen Surg Discussed with: Patient and RN Anticipated discharge date: Clinical course to determine Anticipated discharge place: Home A total of 45 minutes was spent on the care of this complex patient more than 50% of the time was spent in counseling and care coordination. Objective - Vital Signs Vital signs: Vital Signs Temp 98.1 F 06/01/21 03:56 Pulse 71 06/01/21 03:56 Resp 18 06/01/21 03:56 BP 119/73 06/01/21 03:56 Pulse Ox 95 06/01/21 03:56 Intake & Output 05/31/21 06/01/21 06/01/21 18:59 06:59 18:59 Intake Total 846.142 Balance 846.142 Weight 124.738 kg 129.1 kg Intake: Intake, IV Titration 246.142 Amount Diltiazem 125 mg In 95.917 Sodium Chloride 0.9% 100 ml @ 5 MG/HR 5 mls/hr IV .Q24H [facility] Rx#:[id number] Heparin Sod,Pork in 0.45% 150.225 NaCl 25,000 unit In 0.45 % NaCl 1 250ml.bag @ 8 UNITS/KG/HR 9.979 mls/hr IV .Q24H [facility] Rx#: [id number] Oral 600 Other: Voiding Method Toilet # Voids 1 - Labs CBC & Chem 7: 05/31/21 07:38 05/31/21 07:38 Labs: Abnormal Lab Results - Last 24 Hours (Table) 05/31/21 05/31/21 06/01/21 Range/Units 07:38 09:06 01:45 APTT 37.7 H (22.0-30.0) sec Glucose 129 H (74-99) mg/dL Ur Specific [place] >1.050 H (1.001-1.035) <Loy Johnson - Last Filed: 06/02/21 07:57> Subjective agree with note and plan Objective - Vital Signs Vital signs: Vital Signs Temp 98.5 F 06/02/21 03:56 Pulse 68 06/02/21 03:56 Resp 18 06/02/21 03:56 BP 117/72 06/02/21 03:56 Pulse Ox 97 06/02/21 03:56 Intake & Output 06/01/21 06/02/21 06/02/21 18:59 06:59 18:59 Intake Total 639.775 78.107 Balance 639.775 78.107 Intake: Intake, IV Titration 399.775 78.107 Amount Heparin Sod,Pork in 0.45% 99.775 78.107 NaCl 25,000 unit In 0.45 % NaCl 1 250ml.bag @ 8 UNITS/KG/HR 9.979 mls/hr IV .Q24H [facility] Rx#: [id number] Sodium Chloride 0.9% 1, 300 000 ml @ 100 mls/hr IV . Q10H [facility] Rx#:[id number] Oral 240 Other: Voiding Method Toilet Toilet # Voids 2 2 # Bowel Movements 3 1 - Labs CBC & Chem 7: 05/31/21 07:38 05/31/21 07:38 Labs: Abnormal Lab Results - Last 24 Hours (Table) 06/01/21 06/01/21 Range/Units 01:45 08:31 APTT 37.7 H 44.1 H (22.0-30.0) sec
[2021-06-01] MEDS: HEPARIN SOD,PORK IN 0.45% NACL 25,000 UNIT in 0.45% NACL 1 250ML.BAG IV SCH (19:38)
[2021-06-01] MEDS: ONDANSETRON 4 MG/2 ML VIAL IVP PRN (23:58)
[2021-06-02] MEDS: HEPARIN SOD,PORK IN 0.45% NACL 25,000 UNIT in 0.45% NACL 1 250ML.BAG IV SCH ×2 (00:27→16:53)
[2021-06-02] MEDS: HYDROmorphone 1 MG/ML 1 ML SYRINGE IVP PRN ×3 (00:44→11:57)
[2021-06-02 10:15] LABS: ALT 30 U/L (4-49); AST 33 U/L (17-59); African American GFR (CKD) >90 (>60 ml/min/1.73 sqM); Albumin 3.2 g/dL (3.5-5.0); Alkaline Phosphatase 62 U/L (38-126); Anion Gap 4 mmol/L; Blood Urea Nitrogen 14 mg/dL (9-20); Carbon Dioxide 25 mmol/L (22-30); Chloride 105 mmol/L (98-107); Glucose 107 mg/dL (74-99); Non-African American GFR(CKD) 81 (>60 ml/min/1.73 sqM); Potassium 4.5 mmol/L (3.5-5.1); Sodium 134 mmol/L (137-145); Total Bilirubin 0.7 mg/dL (0.2-1.3); Total Protein 6.2 g/dL (6.3-8.2)
[2021-06-02 10:17] LABS: HCT 44.3 % (39.0-53.0); MCH 31.3 pg (25.0-35.0); Mean Platelet Volume 7.7; Platelet Count 203 k/uL (150-450); RBC 4.52 m/uL (4.30-5.90); RDW 14.3 % (11.5-15.5); WBC 7.4 k/uL (3.8-10.6)
[2021-06-02 10:21] LABS: HGB 14.2 gm/dL (13.0-17.5)
--- NOTE | 2021-06-02 10:29 | P.PN ---
Subjective Progress Note Date: 06/02/21 Principal diagnosis: Small bowel obstruction Persistent atrial fibrillation Patient is feeling better does not have abdominal pain taking oral medications Heart rate is well controlled Remains in intravenous heparin We will switch him to eliquis once we know whether he needs surgery are not Objective - Vital Signs Vital signs: Vital Signs Temp 98 F 06/02/21 08:45 Pulse 71 06/02/21 08:45 Resp 18 06/02/21 08:45 BP 96/63 06/02/21 08:45 Pulse Ox 93 L 06/02/21 08:45 Intake & Output 06/01/21 06/02/21 06/02/21 18:59 06:59 18:59 Intake Total 639.775 78.107 180 Balance 639.775 78.107 180 Intake: Intake, IV Titration 399.775 78.107 Amount Heparin Sod,Pork in 0.45% 99.775 78.107 NaCl 25,000 unit In 0.45 % NaCl 1 250ml.bag @ 8 UNITS/KG/HR 9.979 mls/hr IV .Q24H [facility] Rx#: [id number] Sodium Chloride 0.9% 1, 300 000 ml @ 100 mls/hr IV . Q10H [facility] Rx#:[id number] Oral 240 180 Other: Voiding Method Toilet Toilet # Voids 2 2 # Bowel Movements 3 1 - Exam General: The patient is awake and alert, in no distress, and does not appear acutely ill. Skin: Skin is warm and dry and no rashes or lesions are noted. Eye: Pupils are equal, round and reactive to light, extra-ocular movements are intact; there is normal conjunctiva bilaterally. Ears, nose, mouth and throat: There are moist mucous membranes and no oral lesions. Neck: The neck is supple, there is no tenderness or JVD. Cardiovascular: Irregular No murmur, rub or gallop is appreciated. Respiratory: Lungs are clear to auscultation, respirations are non-labored, breath sounds are equal. Gastrointestinal: Soft, non-distended, non-tender abdomen without masses or organomegaly noted. There is no rebound or guarding present. Bowel sounds are unremarkable. Back: There is no tenderness to palpation in the midline. There is no obvious deformity. Musculoskeletal: Normal ROM, no tenderness, There is no pedal edema. There is no calf tenderness or swelling. Extremities: No edema. Vascular: Femoral pulse is normal. Posterior tibial pulses are normal .Dorsalis pedis is palpable. Neurological: CN II-XII intact. There are no obvious motor or sensory deficits. Speech is normal. Psychiatric: Cooperative, appropriate mood & affect, normal judgment. - Labs CBC & Chem 7: 06/02/21 09:19 06/02/21 09:19 Labs: Abnormal Lab Results - Last 24 Hours (Table) 06/02/21 Range/Units 09:19 Sodium 134 L (137-145) mmol/L Glucose 107 H (74-99) mg/dL Calcium 8.0 L (8.4-10.2) mg/dL Total Protein 6.2 L (6.3-8.2) g/dL Albumin 3.2 L (3.5-5.0) g/dL Assessment and Plan Assessment: Persistent atrial fibrillation with controlled ventricular rate Small bowel obstruction Plan: Patient is feeling much better Heart rate is controlled I will continue IV heparin Switch him to oral anticoagulant once surgical issues are addressed
[2021-06-02] MEDS: MONTELUKAST 10 MG TAB PO SCH (11:38)
[2021-06-02] MEDS: METOPROLOL TARTRATE 50 MG TAB PO SCH ×2 (11:38→19:47)
[2021-06-02] MEDS: SERTRALINE 100 MG TAB PO SCH (11:38)
[2021-06-02] MEDS: lisinopriL 10 MG TAB PO SCH (11:38)
[2021-06-02] MEDS: ATORVASTATIN 20 MG TAB PO SCH (11:38)
[2021-06-02] MEDS: PANTOPRAZOLE 40 MG/10 ML VIAL IVP SCH (11:38)
[2021-06-02] MEDS: SODIUM CHLORIDE 0.9% 1,000 ML IV SCH (11:41)
[2021-06-02] MEDS: HEPARIN SODIUM 1,000 UN/ML (10ML VL) IV PRN (11:44)
--- NOTE | 2021-06-02 12:50 | P.PN ---
Progress Note - Text Progress Note Date: 06/02/21 Patient has a partial small bowel obstruction most likely related to GI ST tumor. He had some nausea with regular diet last night. On exam vessels are still. Abdomen soft. Patient will go back to a full liquid diet. He'll be observed.
--- NOTE | 2021-06-02 13:30 | P.PN ---
<Julio Cesar Ji - Last Filed: 06/02/21 13:24> Subjective Progress Note Date: 06/02/21 Hospital course: Patient is a very pleasant 55-year-old male with a past medical history of CAD with previous [place], atrial fibrillation on anticoagulation with Eliquis, history of DVT, history of PE, hypertension, hyperlipidemia, and diverticulitis. He presented to the emergency department with a chief complaint of abdominal pain with nausea. Patient reports recently experiencing intermittent epigastric abdominal pain over the past few months accompanied by changes in his taste stating "nothing seems to taste good anymore." He denied having any episodes of vomiting, fevers, lightheadedness, dizziness, diaphoresis, chest pain, palpitations, or shortness of breath. He does report having 3 loose bowel movements this morning, but denies noting any melena or hematochezia. Patient denies any history of bowel obstructions or inflammatory bowel disorders. He was seen and fully evaluated in the emergency department, CT abdomen and pelvis with contrast was completed revealing focal partial distal small bowel obstruction with concerns of central mid abdominal mass accompanied by surrou nding fat stranding at site of the partial proximal small bowel obstruction and distal colonic diverticula, no evidence of acute diverticulitis. Lab work unremarkable with the exception of polycythemia with hemoglobin of 17.7. Urinalysis negative for blood or infection. While in the emergency Department patient became tachycardic, and EKG was completed revealing atrial fibrillation with RVR at 123 bpm. Patient was given a Cardizem bolus and started on Cardizem infusion. Patient admitted under our services with consultation to general surgery and cardiology. Physical exam: Patient seen and fully evaluated at bedside this morning. He reports im provement in abdominal pain, but states that this pain returned with eating and described as a cramping and severe pain. We will add on bentyl to medication regimen. Pt otherwise denies having any nausea, vomiting, chest pain, palpitations or any other complaints. He remains on Heparin infusion and remains in atrial fibrillation with a controlled ventricular rate 60's-80's on metoprolol 50 mg twice daily. Awaiting recommendations from general surgery regarding potential plans for any surgical procedure or colonoscopy. Pending their recommendations, patient to remain on heparin infusion and once cleared by general surgery may resume oral anticoagulation with Eliquis. Vital signs reviewed and stable General: Nontoxic, no distress and appears stated age. Derm: Skin warm and dry, normal coloration for ethnicity. Head: Atraumatic, normocephalic and symmetric. Eyes: EOMs intact, no lid lag, and anicteric sclera Mouth: no lip lesions, mucus membranes moist Cardiovascular: Irregularly irregular rhythm, tachycardic rate, normal S1S2, no murmur, positive posterior tibial pulses bilaterally, and cap refill < 2 seconds. Lungs: Respirations even, regular, and unlabored on room air. Lungs CTA bilaterally, no rhonchi, no rales, no wheezing, and no accessory muscle usage. Abdominal: Obese abdomen, soft, epigastric tenderness upon palpation, no guarding, no appreciable organomegaly Ext: ROM intact. No gross muscle atrophy, no edema, no contractures Neuro: Speech clear, face symmetrical and CN II-XII grossly intact with no noted focal neuro deficits Psych: Alert and oriented to person, place, time, and situation. Appropriate and pleasant affect. Assessment and Plan of Care: Small bowel obstruction CT findings concerning for Central mid abdominal mass accompanied by fat stranding -CT abdomen and pelvis with contrast was completed revealing focal partial distal small bowel obstruction with concerns of central mid abdominal mass accompanied by surrounding fat stranding at site of the partial proximal small bowel obstruction and distal colonic diverticula, no evidence of acute diverticulitis -Gen. surgery following, appreciate further recommendations. -Continue regular diet per general surgery. -Symptomatic care and pain management -Zofran as needed for nausea -Dilaudid as needed for pain -Hold Eliquis and place patient on Heparin infusion pending possible surgery, May be taken off of Heparin infusion and resume Eliquis once cleared by general surgery. Paroxysmal Atrial fibrillation with RVR History of DVT and PE -Patient to continue metoprolol at 50 mg twice daily -Telemetry monitoring -Cardiology following, appreciate further recommendations -Hold Eliquis and place patient on Heparin infusion pending possible surgery, May be taken off of Heparin infusion and resume Eliquis once cleared by general surgery. Hypertension -Monitor vital signs and Continue daily medication regimen with metoprolol tartrate and ramipril. Hyperlipidemia -Continue daily medication regimen with atorvastatin 20 mg daily. The patient is admitted with an anticipated greater than 2 midnight stay for evaluation of partial small bowel obstruction, abdominal mass, and A. fib RVR. CODE STATUS: Full code DVT prophylaxis: Heparin infusion, may resume Eliquis once cleared by Gen Surg Discussed with: Patient and RN Anticipated discharge date: Clinical course to determine Anticipated discharge place: Home A total of 45 minutes was spent on the care of this complex patient more than 50% of the time was spent in counseling and care coordination. Objective - Vital Signs Vital signs: Vital Signs Temp 98.5 F 06/02/21 03:56 Pulse 68 06/02/21 03:56 Resp 18 06/02/21 03:56 BP 117/72 06/02/21 03:56 Pulse Ox 97 06/02/21 03:56 Intake & Output 06/01/21 06/02/21 06/02/21 18:59 06:59 18:59 Intake Total 639.775 78.107 Balance 639.775 78.107 Intake: Intake, IV Titration 399.775 78.107 Amount Heparin Sod,Pork in 0.45% 99.775 78.107 NaCl 25,000 unit In 0.45 % NaCl 1 250ml.bag @ 8 UNITS/KG/HR 9.979 mls/hr IV .Q24H [facility] Rx#: [id number] Sodium Chloride 0.9% 1, 300 000 ml @ 100 mls/hr IV . Q10H [facility] Rx#:[id number] Oral 240 Other: Voiding Method Toilet Toilet # Voids 2 2 # Bowel Movements 3 1 - Labs CBC & Chem 7: 06/02/21 09:19 06/02/21 09:19 Labs: Abnormal Lab Results - Last 24 Hours (Table) 06/01/21 06/01/21 Range/Units 01:45 08:31 APTT 37.7 H 44.1 H (22.0-30.0) sec <Margie Sanchez - Last Filed: 06/02/21 18:39> Subjective Julio Cesar Ji NP rendered care for this patient independently, reviewed the findings and plan as documented in the note above. I did not physically speak with or examine the patient on this date. Objective - Vital Signs Vital signs: Vital Signs Temp 98 F 06/02/21 16:56 Pulse 78 06/02/21 16:56 Resp 15 06/02/21 16:56 BP 128/77 06/02/21 16:56 Pulse Ox 96 06/02/21 16:56 Intake & Output 06/01/21 06/02/21 06/02/21 18:59 06:59 18:59 Intake Total 639.775 78.107 1110.000 Balance 639.775 78.107 1110.000 Intake: Intake, IV Titration 399.775 78.107 250.000 Amount Heparin Sod,Pork in 0.45% 99.775 78.107 250.000 NaCl 25,000 unit In 0.45 % NaCl 1 250ml.bag @ 8 UNITS/KG/HR 9.979 mls/hr IV .Q24H [facility] Rx#: [id number] Sodium Chloride 0.9% 1, 300 000 ml @ 100 mls/hr IV . Q10H [facility] Rx#:[id number] Oral 240 860 Other: Voiding Method Toilet Toilet Toilet # Voids 2 2 450 # Bowel Movements 3 1 - Labs CBC & Chem 7: 06/02/21 09:19 06/02/21 09:19 Labs: Abnormal Lab Results - Last 24 Hours (Table) 06/02/21 06/02/21 Range/Units 09:19 09:19 APTT 30.6 H (22.0-30.0) sec Sodium 134 L (137-145) mmol/L Glucose 107 H (74-99) mg/dL Calcium 8.0 L (8.4-10.2) mg/dL Total Protein 6.2 L (6.3-8.2) g/dL Albumin 3.2 L (3.5-5.0) g/dL
--- NOTE | 2021-06-02 14:36 | ECHOF ---
Referral Reason:a fib LV function MEASUREMENTS -------- HEIGHT: 185.4 cm WEIGHT: 128.8 kg BP: 119/73 RVIDd: 3.5 cm (< 3.3) IVSd: 1.5 cm (0.6 - 1.1) LVIDd: 3.3 cm (3.9 - 5.3) LVPWd: 1.2 cm (0.6 - 1.1) IVSs: 1.7 cm LVIDs: 2.4 cm LVPWs: 1.8 cm LAESV Index (A-L): 33.32 ml/m Ao Diam: 2.8 cm (2.0 - 3.7) AV Cusp: 2.2 cm (1.5 - 2.6) LA Diam: 4.4 cm (2.7 - 3.8) MV EXCURSION: 20.180 mm (> 18.000) MV EF SLOPE: 54 mm/s (70 - 150) EPSS: 0.5 cm RAP: 5.00 mmHg RVSP: 30.34 mmHg FINDINGS -------- Atrial fibrillation. This was a technically adequate study. The left ventricular size is normal. There is moderate concentric left ventricular hypertrophy. O verall left ventricular systolic function is low-normal with, an EF between 50 - 55 %. The right ventricle is mildly enlarged. LA is midly dilated 29-33ml/m2. The right atrial size is normal. Interatrial and interventricular septum intact. There is no evidence of aortic regurgitation. There is no evidence of aortic stenosis. Mild mitral regurgitation is present. Mild tricuspid regurgitation present. There is no evidence of pulmonary hypertension. The right v entricular systolic pressure, as measured by Doppler, is 30.34mmHg. There is no pulmonic regurgitation present. The aortic root size is normal. IVC Not well visulized. Echo free space represents a pericardial fat pad. There is no pericardial effusion. CONCLUSIONS -------- 1. The left ventricular size is normal. 2. There is moderate concentric left ventricular hypertrophy. 3. Overall left ventricular systolic function is low-normal with, an EF between 50 - 55 %. 4. The right ventricle is mildly enlarged. 5. LA is midly dilated 29-33ml/m2. 6. Mild mitral regurgitation is present. 7. Mild tricuspid regurgitation present. PRESS DEPARTMENT MANAGER: Bren Zabala RDCS
[2021-06-03] MEDS: HEPARIN SOD,PORK IN 0.45% NACL 25,000 UNIT in 0.45% NACL 1 250ML.BAG IV SCH ×2 (03:30→18:09)
[2021-06-03] MEDS ORDERED: IPRATROPIUM-ALBUTEROL 3 ML NEB INHALATION STA (07:12)
[2021-06-03 08:36] LABS: HCT 45.1 % (39.0-53.0); HGB 15.2 gm/dL (13.0-17.5); MCHC 33.7 g/dL (31.0-37.0); MCV 94.8 fL (80.0-100.0); Mean Platelet Volume 7.8; Platelet Count 186 k/uL (150-450); RBC 4.76 m/uL (4.30-5.90); RDW 13.4 % (11.5-15.5); WBC 8.9 k/uL (3.8-10.6)
[2021-06-03 09:08] LABS: ALT 32 U/L (4-49); AST 32 U/L (17-59); African American GFR (CKD) >90 (>60 ml/min/1.73 sqM); Albumin 3.2 g/dL (3.5-5.0); Alkaline Phosphatase 71 U/L (38-126); Anion Gap 4 mmol/L; Blood Urea Nitrogen 12 mg/dL (9-20); Calcium 8.4 mg/dL (8.4-10.2); Carbon Dioxide 24 mmol/L (22-30); Chloride 108 mmol/L (98-107); Glucose 109 mg/dL (74-99); Non-African American GFR(CKD) 87 (>60 ml/min/1.73 sqM); Potassium 4.1 mmol/L (3.5-5.1); Sodium 136 mmol/L (137-145); Total Protein 6.1 g/dL (6.3-8.2)
[2021-06-03] MEDS: METOPROLOL TARTRATE 50 MG TAB PO SCH ×2 (11:10→20:32)
[2021-06-03] MEDS: ATORVASTATIN 20 MG TAB PO SCH (11:10)
[2021-06-03] MEDS: PANTOPRAZOLE 40 MG/10 ML VIAL IVP SCH (11:10)
[2021-06-03] MEDS: lisinopriL 10 MG TAB PO SCH (11:10)
[2021-06-03] MEDS: SERTRALINE 100 MG TAB PO SCH (11:10)
[2021-06-03] MEDS: MONTELUKAST 10 MG TAB PO SCH (11:10)
[2021-06-03] MEDS: HEPARIN SODIUM 1,000 UN/ML (10ML VL) IV PRN (11:18)
--- NOTE | 2021-06-03 12:13 | P.PN ---
<Julio Cesar Ji - Last Filed: 06/03/21 12:08> Subjective Progress Note Date: 06/03/21 Hospital course: Patient is a very pleasant 55-year-old male with a past medical history of CAD with previous AK, atrial fibrillation on anticoagulation with Eliquis, history of DVT, history of PE, hypertension, hyperlipidemia, and diverticulitis. He presented to the emergency department with a chief complaint of abdominal pain with nausea. Patient reports recently experiencing intermittent epigastric abdominal pain over the past few months accompanied by changes in his taste stating "nothing seems to taste good anymore." He denied having any episodes of vomiting, fevers, lightheadedness, dizziness, diaphoresis, chest pain, palpitations, or shortness of breath. He does report having 3 loose bowel movements this morning, but denies noting any melena or hematochezia. Patient denies any history of bowel obstructions or inflammatory bowel disorders. He was seen and fully evaluated in the emergency department, CT abdomen and pelvis with contrast was completed revealing focal partial distal small bowel obstruction with concerns of central mid abdominal mass accompanied by surrou nding fat stranding at site of the partial proximal small bowel obstruction and distal colonic diverticula, no evidence of acute diverticulitis. Lab work unremarkable with the exception of polycythemia with hemoglobin of 17.7. Urinalysis negative for blood or infection. While in the emergency Department patient became tachycardic, and EKG was completed revealing atrial fibrillation with RVR at 123 bpm. Patient was given a Cardizem bolus and started on Cardizem infusion. Echocardiogram completed revealing EF of 50-55%. Patient admitted under our services with consultation to general surgery and cardiology. Physical exam: Patient seen and fully evaluated at bedside this morning. He reports that his pain is better but states he has not been eating for fear that his pain will return as he reports anything he takes more than a couple drinks of water causes him to have increased pain. Bentyl was added onto medication regimen. Pt continues to deny having any further complaints including nausea, vomiting, chest pain, palpitations or shortness of breath. He remains on Heparin infusion and remains in atrial fibrillation with a controlled ventricular rate 60's-80's on metoprolol 50 mg twice daily. Awaiting recommendations from general surgery regarding potential plans for any surgical procedure or colonoscopy. Pending their recommendations, patient to remain on heparin infusion and once cleared by general surgery may resume oral anticoagulation with Eliquis. Morning labs reviewed and stable. Vital signs reviewed and stable General: Nontoxic, no distress and appears stated age. Derm: Skin warm and dry, normal coloration for ethnicity. Head: Atraumatic, normocephalic and symmetric. Eyes: EOMs intact, no lid lag, and anicteric sclera Mouth: no lip lesions, mucus membranes moist Cardiovascular: Irregularly irregular rhythm, tachycardic rate, normal S1S2, no murmur, positive posterior tibial pulses bilaterally, and cap refill < 2 seconds. Lungs: Respirations even, regular, and unlabored on room air. Lungs CTA bilate rally, no rhonchi, no rales, no wheezing, and no accessory muscle usage. Abdominal: Obese abdomen, soft, slight epigastric tenderness upon palpation, no guarding, no appreciable organomegaly Ext: ROM intact. No gross muscle atrophy, no edema, no contractures Neuro: Speech clear, face symmetrical and CN II-XII grossly intact with no noted focal neuro deficits Psych: Alert and oriented to person, place, time, and situation. Appropriate and pleasant affect. Assessment and Plan of Care: Small bowel obstruction CT findings concerning for Central mid abdominal mass accompanied by fat stranding -CT abdomen and pelvis with contrast was completed revealing focal partial distal small bowel obstruction with concerns of central mid abdominal mass accompanied by surrounding fat stranding at site of the partial proximal small bowel obstruction and distal colonic diverticula, no evidence of acute diverticulitis -Gen. surgery following, appreciate further recommendations. -Continue regular diet per general surgery. -Symptomatic care and pain management -Zofran as needed for nausea -Dilaudid as needed for pain -Hold Eliquis and place patient on Heparin infusion pending possible surgery, May be taken off of Heparin infusion and resume Eliquis once cleared by general surgery. Paroxysmal Atrial fibrillation with RVR History of DVT and PE -Patient to continue metoprolol at 50 mg twice daily -Telemetry monitoring -Cardiology following, appreciate further recommendations -Echocardiogram revealing an EF between 50 and 55% -Hold Eliquis and place patient on Heparin infusion pending possible surgery, May be taken off of Heparin infusion and resume Eliquis once cleared by general surgery. Hypertension -Monitor vital signs and Continue daily medication regimen with metoprolol tartrate and ramipril. Hyperlipidemia -Continue daily medication regimen with atorvastatin 20 mg daily. The patient is admitted with an anticipated greater than 2 midnight stay for evaluation of partial small bowel obstruction, abdominal mass, and A. fib RVR. CODE STATUS: Full code DVT prophylaxis: Heparin infusion, may resume Eliquis once cleared by Gen Surg Discussed with: Patient and RN Anticipated discharge date: Clinical course to determine Anticipated discharge place: Home A total of 45 minutes was spent on the care of this complex patient more than 50% of the time was spent in counseling and care coordination. Objective - Vital Signs Vital signs: Vital Signs Temp 97.8 F 06/03/21 08:49 Pulse 66 06/03/21 08:49 Resp 15 06/03/21 08:49 BP 158/90 06/03/21 08:49 Pulse Ox 93 L 06/03/21 08:49 Intake & Output 06/02/21 06/03/21 06/03/21 18:59 06:59 18:59 Intake Total 1110.000 198.648 Balance 1110.000 198.648 Intake: Intake, IV Titration 250.000 198.648 Amount Heparin Sod,Pork in 0.45% 250.000 198.648 NaCl 25,000 unit In 0.45 % NaCl 1 250ml.bag @ 8 UNITS/KG/HR 9.979 mls/hr IV .Q24H [facility] Rx#: [id number] Oral 860 Other: Voiding Method Toilet Toilet Toilet # Voids 450 2 - Labs CBC & Chem 7: 06/03/21 08:11 06/03/21 08:11 Labs: Abnormal Lab Results - Last 24 Hours (Table) 06/02/21 06/02/21 06/02/21 Range/Units 09:19 09:19 20:10 APTT 30.6 H 45.6 H (22.0-30.0) sec Sodium 134 L (137-145) mmol/L Chloride (98-107) mmol/L Glucose 107 H (74-99) mg/dL Calcium 8.0 L (8.4-10.2) mg/dL Total Protein 6.2 L (6.3-8.2) g/dL Albumin 3.2 L (3.5-5.0) g/dL 06/03/21 06/03/21 Range/Units 08:11 08:11 APTT 41.4 H (22.0-30.0) sec Sodium 136 L (137-145) mmol/L Chloride 108 H (98-107) mmol/L Glucose 109 H (74-99) mg/dL Calcium (8.4-10.2) mg/dL Total Protein 6.1 L (6.3-8.2) g/dL Albumin 3.2 L (3.5-5.0) g/dL <Margie Sanchez - Last Filed: 06/03/21 19:42> Subjective Julio Cesar Ji NP rendered care for this patient independently, reviewed the findings and plan as documented in the note above. I did not physically speak with or examine the patient on this date. Objective - Vital Signs Vital signs: Vital Signs Temp 98.5 F 06/03/21 17:00 Pulse 86 06/03/21 17:00 Resp 17 06/03/21 17:00 BP 170/95 06/03/21 17:00 Pulse Ox 94 L 06/03/21 17:00 Intake & Output 06/03/21 06/03/21 06/04/21 06:59 18:59 06:59 Intake Total 198.648 490.00 Output Total 1000 Balance 198.648 -510.00 Intake: Intake, IV Titration 198.648 250.00 Amount Heparin Sod,Pork in 0.45% 198.648 250.00 NaCl 25,000 unit In 0.45 % NaCl 1 250ml.bag @ 8 UNITS/KG/HR 9.979 mls/hr IV .Q24H [facility] Rx#: [id number] Oral 240 Output: Urine 1000 Other: Voiding Method Toilet Toilet # Voids 2 - Labs CBC & Chem 7: 06/03/21 08:11 06/03/21 08:11 Labs: Abnormal Lab Results - Last 24 Hours (Table) 06/02/21 06/03/21 06/03/21 Range/Units 20:10 08:11 08:11 APTT 45.6 H 41.4 H (22.0-30.0) sec Sodium 136 L (137-145) mmol/L Chloride 108 H (98-107) mmol/L Glucose 109 H (74-99) mg/dL Total Protein 6.1 L (6.3-8.2) g/dL Albumin 3.2 L (3.5-5.0) g/dL 06/03/21 Range/Units 17:29 APTT 53.2 H (22.0-30.0) sec Sodium (137-145) mmol/L Chloride (98-107) mmol/L Glucose (74-99) mg/dL Total Protein (6.3-8.2) g/dL Albumin (3.5-5.0) g/dL
--- NOTE | 2021-06-03 12:17 | P.PN ---
Progress Note - Text Progress Note Date: 06/03/21 Patient states he is tolerating his diet. He denies any significant abdominal pain. On exam vital signs are stable. Abdomen soft. 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 The patient will be evaluated with Dr. Cabral tomorrow.
[2021-06-03] MEDS: DICYCLOMINE 10 MG CAP PO SCH ×3 (14:32→22:59)
--- NOTE | 2021-06-03 15:16 | P.PN ---
Subjective Progress Note Date: 06/03/21 Patient seen today resting in bed comfortably. Patient remains in atrial fibrillation on a heparin drip. I'll request is on hold due to possible GI surgery for abdominal mass and partial small bowel bowel obstruction. Continue to leave aliquots on hold at this time until further recommendations by surgery Heart rate is well-controlled. Patient states his abdominal pain is better and he is currently taking oral medications. Objective - Vital Signs Vital signs: Vital Signs Temp 98.3 F 06/03/21 12:14 Pulse 83 06/03/21 12:14 Resp 17 06/03/21 12:14 BP 135/80 06/03/21 12:14 Pulse Ox 93 L 06/03/21 12:14 Intake & Output 06/02/21 06/03/21 06/03/21 18:59 06:59 18:59 Intake Total 1110.000 198.648 145.01 Balance 1110.000 198.648 145.01 Intake: Intake, IV Titration 250.000 198.648 145.01 Amount Heparin Sod,Pork in 0.45% 250.000 198.648 145.01 NaCl 25,000 unit In 0.45 % NaCl 1 250ml.bag @ 8 UNITS/KG/HR 9.979 mls/hr IV .Q24H [facility] Rx#: [id number] Oral 860 Other: Voiding Method Toilet Toilet Toilet # Voids 450 2 - Exam PHYSICAL EXAM: VITAL SIGNS: Reviewed. GENERAL: Well-developed in no acute distress. HEENT: Head is normocephalic. Pupils are equal, round. Sclerae anicteric. Mucous membranes of the mouth are moist. NECK: Supple. No JVD or thyromegaly RESPIRATORY: Respirations even and unlabored. Lungs diminished to auscultation bilaterally. CARDIO: Irregular rate and rhythm. S1 and S2 heard. No murmur or gallops. EXTREMITIES: Normal range of motion. No clubbing or cyanosis. Peripheral pulses intact. Negative for bilateral lower extremity edema NEURO: Orientated to person, time, mood is appropriate - Labs CBC & Chem 7: 06/03/21 08:11 06/03/21 08:11 Labs: Abnormal Lab Results - Last 24 Hours (Table) 06/02/21 06/03/21 06/03/21 Range/Units 20:10 08:11 08:11 APTT 45.6 H 41.4 H (22.0-30.0) sec Sodium 136 L (137-145) mmol/L Chloride 108 H (98-107) mmol/L Glucose 109 H (74-99) mg/dL Total Protein 6.1 L (6.3-8.2) g/dL Albumin 3.2 L (3.5-5.0) g/dL Assessment and Plan Assessment: Small bowel obstruction Persistent atrial fibrillation Plan: Continue with IV heparin will transition to oral anticoagulation on surgery's recommendation continue with all other current cardiac medications
[2021-06-04] MEDS: HYDROmorphone 1 MG/ML 1 ML SYRINGE IVP PRN (00:02)
[2021-06-04] MEDS: HEPARIN SOD,PORK IN 0.45% NACL 25,000 UNIT in 0.45% NACL 1 250ML.BAG IV SCH ×2 (03:32→17:44)
[2021-06-04] MEDS ORDERED: IPRATROPIUM-ALBUTEROL 3 ML NEB INHALATION PRN (09:11)
[2021-06-04] MEDS ORDERED: IPRATROPIUM-ALBUTEROL 3 ML NEB INHALATION STA (09:11)
[2021-06-04 09:43] LABS: HCT 45.2 % (39.0-53.0); HGB 15.2 gm/dL (13.0-17.5); MCHC 33.6 g/dL (31.0-37.0); MCV 95.3 fL (80.0-100.0); Mean Platelet Volume 7.6; Platelet Count 190 k/uL (150-450); RBC 4.74 m/uL (4.30-5.90); RDW 14.2 % (11.5-15.5)
[2021-06-04 10:00] LABS: ALT 27 U/L (4-49); AST 23 U/L (17-59); African American GFR (CKD) >90 (>60 ml/min/1.73 sqM); Albumin 3.6 g/dL (3.5-5.0); Alkaline Phosphatase 80 U/L (38-126); Anion Gap 8 mmol/L; Blood Urea Nitrogen 10 mg/dL (9-20); Calcium 8.6 mg/dL (8.4-10.2); Carbon Dioxide 25 mmol/L (22-30); Chloride 103 mmol/L (98-107); Glucose 104 mg/dL (74-99); Non-African American GFR(CKD) 89 (>60 ml/min/1.73 sqM); Potassium 3.7 mmol/L (3.5-5.1); Sodium 136 mmol/L (137-145); Total Bilirubin 1.5 mg/dL (0.2-1.3); Total Protein 6.7 g/dL (6.3-8.2)
[2021-06-04] MEDS: SERTRALINE 100 MG TAB PO SCH (10:02)
[2021-06-04] MEDS: lisinopriL 10 MG TAB PO SCH (10:02)
[2021-06-04] MEDS: ATORVASTATIN 20 MG TAB PO SCH (10:02)
[2021-06-04] MEDS: MONTELUKAST 10 MG TAB PO SCH (10:02)
[2021-06-04] MEDS: PANTOPRAZOLE 40 MG/10 ML VIAL IVP SCH (10:03)
[2021-06-04] MEDS: DICYCLOMINE 10 MG CAP PO SCH ×3 (10:03→17:44)
[2021-06-04] MEDS: METOPROLOL TARTRATE 50 MG TAB PO SCH (10:03)
--- NOTE | 2021-06-04 11:48 | P.PN ---
<Ada Pena - Last Filed: 06/04/21 13:37> Subjective Progress Note Date: 06/04/21 CHIEF COMPLAINT: Abdominal pain. HISTORY OF PRESENT ILLNESS: The patient was seen and examined for follow-up for abdominal pain. He is denying any abdominal pain. He had a bowel movement this morning. He states he's had loose bowel movements since his contrast. Although the patient has had a regular diet ordered he has not been eating more than clear liquids and some full liquids such as puddings for he's been afraid he would have abdominal pain. He denies any nausea or vomiting. Reports from [facility] were obtained. He had a screening colonoscopy on 04/28/[address] Armstrong with findings of 5 polyps status post polypectomy in the cecum, ascending colon, and rectum 3. Pathology showed cecal polyp tubular adenoma, colon tubular adenoma, and rectum hyperplastic polyps. PHYSICAL EXAM: VITAL SIGNS: Reviewed. GENERAL: Well-developed in no acute distress. HEENT: No sclera icterus. Extraocular movements grossly intact. Moist buccal mucosa. Head is atraumatic, normocephalic. ABDOMEN: Soft. Nondistended. Nontender. NEUROLOGIC: Alert and oriented. Cranial nerves II through XII grossly intact. ASSESSMENT: 1. Abdominal pain improved with no evidence of small bowel obstruction on small bowel follow-through x-ray 2. Mesenteric nodule noted on CAT scan could be associated with a colon neoplasm. Small bowel follow-through did identify that there may be an intraluminal lesion in the small bowel loop in the abdomen PLAN: -It Was discussed with patient for option to proceed with colonoscopy tomorrow versus trying a regular diet with follow-up outpatient. Patient decided he would like to try to eat regular food and evaluate abdominal pain. -Continue Regular diet, encourage patient to eat -Continue supportive care -Continue dicyclomine The impression and plan of care has been dictated as directed. I performed a history and examination of this patient, discussed the same with the dictator. I agree with the dictator's note ,documented as a scribe. Any additional findings or plans will be noted. Objective - Vital Signs Vital signs: Vital Signs Temp 98.9 F 06/04/21 08:38 Pulse 92 06/04/21 08:38 Resp 18 06/04/21 08:38 BP 173/97 06/04/21 08:38 Pulse Ox 95 06/04/21 08:38 Intake & Output 06/03/21 06/04/21 06/04/21 18:59 06:59 18:59 Intake Total 490.00 198.974 Output Total 1000 250 Balance -510.00 -51.026 Intake: Intake, IV Titration 250.00 198.974 Amount Heparin Sod,Pork in 0.45% 250.00 198.974 NaCl 25,000 unit In 0.45 % NaCl 1 250ml.bag @ 8 UNITS/KG/HR 9.979 mls/hr IV .Q24H [facility] Rx#: [id number] Oral 240 Output: Urine 1000 250 Other: Voiding Method Toilet Toilet Urinal - Labs CBC & Chem 7: 06/04/21 09:08 06/04/21 09:08 Labs: Abnormal Lab Results - Last 24 Hours (Table) 06/03/21 Range/Units 17:29 APTT 53.2 H (22.0-30.0) sec <Timoteo Beck - Last Filed: 06/04/21 18:01> Subjective As above. Patient tolerating diet today. Says he was not eating much because he was afraid the pain might recur. Small bowel series from Friday shows no evidence of obstruction or small bowel mass. Difficulty biopsying the lesion was discussed with the patient. This will need to be done either through an open exploratory approach or possibly laparoscopically. Prior to doing so however I do think its important to repeat the colonoscopy given the patient's history of previous large colon polyp with high-grade dysplasia and also the numerous polyps seen on the last colonoscopy 14 months ago. If this is a metastatic deposit definitive resection could take place at that time. This was discussed in detail with the patient. Patient is considering whether to stay and have the colonoscopy performed here or possibly be discharged to have this performed electively as an outpatient. Objective - Vital Signs Vital signs: Vital Signs Temp 99.7 F H 06/04/21 16:49 Pulse 94 06/04/21 16:49 Resp 17 06/04/21 16:49 BP 146/82 06/04/21 16:49 Pulse Ox 95 06/04/21 16:49 Intake & Output 06/03/21 06/04/21 06/04/21 18:59 06:59 18:59 Intake Total 490.00 198.974 791.975 Output Total 1000 250 Balance -510.00 -51.026 791.975 Intake: Intake, IV Titration 250.00 198.974 251.975 Amount Heparin Sod,Pork in 0.45% 250.00 198.974 251.975 NaCl 25,000 unit In 0.45 % NaCl 1 250ml.bag @ 8 UNITS/KG/HR 9.979 mls/hr IV .Q24H [facility] Rx#: [id number] Oral 240 540 Output: Urine 1000 250 Other: Voiding Method Toilet Toilet Toilet Urinal Urinal # Voids 2 - Labs CBC & Chem 7: 06/04/21 09:08 06/04/21 09:08 Labs: Abnormal Lab Results - Last 24 Hours (Table) 06/03/21 06/04/21 06/04/21 Range/Units 17:29 09:08 09:08 APTT 53.2 H 42.6 H (22.0-30.0) sec Sodium 136 L (137-145) mmol/L Glucose 104 H (74-99) mg/dL Total Bilirubin 1.5 H (0.2-1.3) mg/dL Assessment and Plan (1) Abdominal pain Current Visit: Yes Status: Acute Code(s): R10.9 - UNSPECIFIED ABDOMINAL PAIN SNOMED Code(s): 58881160
--- NOTE | 2021-06-04 12:05 | P.PN ---
Subjective Progress Note Date: 06/04/21 HISTORY OF PRESENT ILLNESS: This is a pleasant 55-year-old male past medical history significant for chronic persistent atrial fibrillation with prior unsuccessful cardioversions on Xarelto, hypertension and hyperlipidemia .He follows in the office with Dr. Andrews in [place]. We have been asked to see in consultation for atrial fibrillation with rapid ventricular response. Patient presents to the emergency department with complaints of abdominal pain and nausea. He states that he's been having abdominal pain and some mild nausea after one month, however, it was due to diet. He cut out dairy, but no improvement. He states over the past month it has progressively been getting worse. He did have a bowel movement yesterday morning. CT abdomen pelvis revealed distal colonic diverticuli, findings suggestive of focal partial distal small bowel obstruction, central mid ab dominal mass with surrounding fat stranding outside of pressure proximal small bowel obstruction, neoplasm would be in differential. On admission patient was in atrial fibrillation with RVR heart rate 120s. Patient was started on IV Cardizem drip and IV heparin. His heart rates have improved currently in atrial fibrillation with heart rate in the 50s-70s. Patient denies any chest pain, palpitations, lightheadedness, dizziness, syncope or near syncope, symptoms of orthopnea or PND. Denies smoking or alcohol use. Patient denies any history of coronary artery disease, CT, stroke, diabetes. DIAGNOSTICS EKG reveals atrial fibrillation with rapid ventricular response, heart rate 123, no significant ST-T wave abnormalities Telemetry tracings indicate atrial fibrillation with heart rate in the 50s-70s Laboratory reviewed, WBC 8.3, hemoglobin 17.7, platelets 211, sodium 137, potassium 5.1, BUN 12, serum creatinine 1.0, troponin negative 1 Current home medications include Eliquis 5 mg twice a day, atorvastatin 20 mg daily, metoprolol tartrate 50 mg twice a day,Ramipril 06/04/2021 Patient examined this morning at the bedside. He denies chest pain or pressure. Denies SOB. He remains on IV Heparin. Telemetry reveals atrial fibrillation with controlled ventricular rates. Echocardiogram completed revealed ejection fraction 50-55%, mild mitral regurgitation, and mild tricuspid regurgitation. PHYSICAL EXAM: VITAL SIGNS: Reviewed. GENERAL: Well-developed in no acute distress. NECK: Supple. No JVD or thyromegaly LUNGS: Respirations even and unlabored. Lungs essentially clear to auscultation bilaterally. HEART: Irregular rate and rhythm. S1 and S2 heard. EXTREMITIES: Normal range of motion. No clubbing or cyanosis. Peripheral pulses intact. No lower extremity edema ASSESSMENT: Chronic persistent atrial fibrillation with RVR, on eliquis outpatient Small bowel obstruction with abdominal mass Hypertension Hyperlipidemia PLAN: Continue current cardiac medications Continue to hold Eliquis. Continue IV heparin. Await further input from surgical services Further recommendations pending patient course Nurse practitioner note has been reviewed by physician. Signing provider agrees with the documented findings, assessment, and plan of care. Objective - Vital Signs Vital signs: Vital Signs Temp 98.9 F 06/04/21 08:38 Pulse 92 06/04/21 08:38 Resp 18 06/04/21 08:38 BP 173/97 06/04/21 08:38 Pulse Ox 95 06/04/21 08:38 Intake & Output 06/03/21 06/04/21 06/04/21 18:59 06:59 18:59 Intake Total 490.00 198.974 139.953 Output Total 1000 250 Balance -510.00 -51.026 139.953 Intake: Intake, IV Titration 250.00 198.974 139.953 Amount Heparin Sod,Pork in 0.45% 250.00 198.974 139.953 NaCl 25,000 unit In 0.45 % NaCl 1 250ml.bag @ 8 UNITS/KG/HR 9.979 mls/hr IV .Q24H [facility] Rx#: [id number] Oral 240 Output: Urine 1000 250 Other: Voiding Method Toilet Toilet Urinal - Labs CBC & Chem 7: 06/04/21 09:08 06/04/21 09:08 Labs: Abnormal Lab Results - Last 24 Hours (Table) 06/03/21 06/04/21 06/04/21 Range/Units 17:29 09:08 09:08 APTT 53.2 H 42.6 H (22.0-30.0) sec Sodium 136 L (137-145) mmol/L Glucose 104 H (74-99) mg/dL Total Bilirubin 1.5 H (0.2-1.3) mg/dL
[2021-06-04] MEDS: HEPARIN SODIUM 1,000 UN/ML (10ML VL) IV PRN (12:26)
--- NOTE | 2021-06-04 13:02 | P.PN ---
<Julio Cesar Ji - Last Filed: 06/04/21 13:03> Subjective Progress Note Date: 06/04/21 Hospital course: Patient is a very pleasant 55-year-old male with a past medical history of CAD with previous OR, atrial fibrillation on anticoagulation with Eliquis, history of DVT, history of PE, hypertension, hyperlipidemia, and diverticulitis. He presented to the emergency department with a chief complaint of abdominal pain with nausea. Patient reports recently experiencing intermittent epigastric abdominal pain over the past few months accompanied by changes in his taste stating "nothing seems to taste good anymore." He denied having any episodes of vomiting, fevers, lightheadedness, dizziness, diaphoresis, chest pain, palpitations, or shortness of breath. He does report having 3 loose bowel movements this morning, but denies noting any melena or hematochezia. Patient denies any history of bowel obstructions or inflammatory bowel disorders. He was seen and fully evaluated in the emergency department, CT abdomen and pelvis with contrast was completed revealing focal partial distal small bowel obstruction with concerns of central mid abdominal mass accompanied by surrou nding fat stranding at site of the partial proximal small bowel obstruction and distal colonic diverticula, no evidence of acute diverticulitis. Lab work unremarkable with the exception of polycythemia with hemoglobin of 17.7. Urinalysis negative for blood or infection. While in the emergency Department patient became tachycardic, and EKG was completed revealing atrial fibrillation with RVR at 123 bpm. Patient was given a Cardizem bolus and started on Cardizem infusion. Echocardiogram completed revealing EF of 50-55%. Patient admitted under our services with consultation to general surgery and cardiology. Physical exam: Patient seen and fully evaluated at bedside this morning. He continues to report overall his pain is better but again reports that he has not been eating secondary to increased pain with oral intake. Patient denies attempting to eat solid food since initiation of scheduled Bentyl. Patient encouraged to increase his oral intake at this time. He denies having any headache, lightheadedness, dizziness, chest pain, palpitations, nausea, vomiting, or any other complaints at this time. He remains on Heparin infusion and remains in atrial fibrillation with a controlled ventricular rate 80's to 90's on metoprolol 50 mg twice daily. Morning labs reviewed and stable with the exception of mildly elevated bilirubin of 1.5, possibly secondary to decreased oral intake. Patient states he spoke with General surgery and he was told he is going for colonoscopy tomorrow morning. Pending further recommendations after colonoscopy, patient to remain on heparin infusion until cleared by general surgery and then may discon tinue heparin infusion and resume oral anticoagulation with Eliquis. Mildly elevated temp of 99.8F this morning, vitals otherwise stable. Vital signs reviewed and stable General: Nontoxic, no distress and appears stated age. Derm: Skin warm and dry, normal coloration for ethnicity. Head: Atraumatic, normocephalic and symmetric. Eyes: EOMs intact, no lid lag, and anicteric sclera Mouth: no lip lesions, mucus membranes moist Cardiovascular: Irregularly irregular rhythm, controlled rate, normal S1S2, no murmur, positive posterior tibial pulses bilaterally, and cap refill < 2 seconds. Lungs: Respirations even, regular, and unlabored on room air. Lungs CTA bilaterally, no rhonchi, no rales, no wheezing, and no accessory muscle usage. Abdominal: Obese abdomen, soft, slight epigastric tenderness upon palpation, no guarding, no appreciable organomegaly Ext: ROM intact. No gross muscle atrophy, no edema, no contractures Neuro: Speech clear, face symmetrical and CN II-XII grossly intact with no noted focal neuro deficits Psych: Alert and oriented to person, place, time, and situation. Appropriate and pleasant affect. Assessment and Plan of Care: Small bowel obstruction CT findings concerning for Central mid abdominal mass accompanied by fat stranding -CT abdomen and pelvis with contrast was completed revealing focal partial distal small bowel obstruction with concerns of central mid abdominal mass accompanied by surrounding fat stranding at site of the partial proximal small bowel obstruction and distal colonic diverticula, no evidence of acute diverticulitis -Gen. surgery following, likely taking patient for colonoscopy tomorrow morning. -Continue regular diet per general surgery.NPO at midnight -Symptomatic care and pain management -Zofran as needed for nausea -Dilaudid as needed for pain -Hold Eliquis and place patient on Heparin infusion pending possible surgery, May be taken off of Heparin infusion and resume Eliquis once cleared by general surgery. Paroxysmal Atrial fibrillation with RVR History of DVT and PE -Patient to continue metoprolol at 50 mg twice daily -Telemetry monitoring -Cardiology following, appreciate further recommendations -Echocardiogram revealing an EF between 50 and 55% -Hold Eliquis and place patient on Heparin infusion pending possible surgery, May be taken off of Heparin infusion and resume Eliquis once cleared by general surgery. Hypertension -Monitor vital signs and Continue daily medication regimen with metoprolol tartrate and ramipril. Hyperlipidemia -Continue daily medication regimen with atorvastatin 20 mg daily. The patient is admitted with an anticipated greater than 2 midnight stay for evaluation of partial small bowel obstruction, abdominal mass, and A. fib RVR. CODE STATUS: Full code DVT prophylaxis: Heparin infusion, may resume Eliquis once cleared by Gen Surg Discussed with: Patient and RN Anticipated discharge date: Clinical course to determine Anticipated discharge place: Home A total of 45 minutes was spent on the care of this complex patient more than 50% of the time was spent in counseling and care coordination. Objective - Vital Signs Vital signs: Vital Signs Temp 99.8 F H 06/04/21 12:31 Pulse 85 06/04/21 12:31 Resp 16 06/04/21 12:31 BP 139/80 06/04/21 12:31 Pulse Ox 91 L 06/04/21 12:31 Intake & Output 06/03/21 06/04/21 06/04/21 18:59 06:59 18:59 Intake Total 490.00 198.974 139.953 Output Total 1000 250 Balance -510.00 -51.026 139.953 Intake: Intake, IV Titration 250.00 198.974 139.953 Amount Heparin Sod,Pork in 0.45% 250.00 198.974 139.953 NaCl 25,000 unit In 0.45 % NaCl 1 250ml.bag @ 8 UNITS/KG/HR 9.979 mls/hr IV .Q24H [facility] Rx#: [id number] Oral 240 Output: Urine 1000 250 Other: Voiding Method Toilet Toilet Urinal # Voids 1 - Labs CBC & Chem 7: 06/04/21 09:08 06/04/21 09:08 Labs: Abnormal Lab Results - Last 24 Hours (Table) 06/03/21 06/04/21 06/04/21 Range/Units 17:29 09:08 09:08 APTT 53.2 H 42.6 H (22.0-30.0) sec Sodium 136 L (137-145) mmol/L Glucose 104 H (74-99) mg/dL Total Bilirubin 1.5 H (0.2-1.3) mg/dL <Margie Sanchez - Last Filed: 06/04/21 15:59> Subjective Julio Cesar Ji NP rendered care for this patient independently, reviewed the findings and plan as documented in the note above. I did not physically speak with or examine the patient on this date. Objective - Vital Signs Vital signs: Vital Signs Temp 99.8 F H 06/04/21 12:31 Pulse 85 06/04/21 12:31 Resp 16 06/04/21 12:31 BP 139/80 06/04/21 12:31 Pulse Ox 91 L 06/04/21 12:31 Intake & Output 06/03/21 06/04/21 06/04/21 18:59 06:59 18:59 Intake Total 490.00 198.974 139.953 Output Total 1000 250 Balance -510.00 -51.026 139.953 Intake: Intake, IV Titration 250.00 198.974 139.953 Amount Heparin Sod,Pork in 0.45% 250.00 198.974 139.953 NaCl 25,000 unit In 0.45 % NaCl 1 250ml.bag @ 8 UNITS/KG/HR 9.979 mls/hr IV .Q24H [facility] Rx#: [id number] Oral 240 Output: Urine 1000 250 Other: Voiding Method Toilet Toilet Toilet Urinal Urinal # Voids 1 - Labs CBC & Chem 7: 06/04/21 09:08 06/04/21 09:08 Labs: Abnormal Lab Results - Last 24 Hours (Table) 06/03/21 06/04/21 06/04/21 Range/Units 17:29 09:08 09:08 APTT 53.2 H 42.6 H (22.0-30.0) sec Sodium 136 L (137-145) mmol/L Glucose 104 H (74-99) mg/dL Total Bilirubin 1.5 H (0.2-1.3) mg/dL
[2021-06-04 16:50] VITALS: BP 146/82; PULSE 94; RESP 17; TEMP 99.7
[2021-06-04] MEDS ORDERED: APIXABAN 5 MG TAB PO STA (17:48)
--- NOTE | 2021-06-05 18:49 | P.DS ---
Providers Date of admission: 05/31/21 09:26 Expected date of discharge: 06/04/21 Attending physician: Margie Sanchez DO Consults: 05/31/21 09:27 Consult Physician Routine Consulting Provider: Timoteo Beck Consult Reason/Comments: Partial small bowel obstruction, abdominal mass Do you want consulting provider notified?: Yes 05/31/21 13:02 Consult Physician Routine Consulting Provider: Melly Simms Consult Reason/Comments: A-fib RVR Do you want consulting provider notified?: Yes Primary care physician: [facility] Hospital Course: Discharge Diagnosis: Small bowel obstruction, resolved CT findings concerning for Central mid abdominal mass accompanied by fat stranding, general surgery recommending patient follow up outpatient for colonoscopy for further evaluation Paroxysmal Atrial fibrillation with RVR History of DVT and PE Hypertension Hyperlipidemia Hospital Course: Patient is a very pleasant 55-year-old male with a past medical history of CAD with previous [place], atrial fibrillation on anticoagulation with Eliquis, history of DVT, history of PE, hypertension, hyperlipidemia, and diverticulitis. He presented to the emergency department with a chief complaint of abdominal pain with nausea. Patient reports recently experiencing intermittent epigastric abdominal pain over the past few months accompanied by changes in his taste stating "nothing seems to taste good anymore." He denied having any episodes of vomiting, fevers, lightheadedness, dizziness, diaphoresis, chest pain, palpitations, or shortness of breath. He does report having 3 loose bowel movements this morning, but denies noting any melena or hematochezia. Patient denies any history of bowel obstructions or inflammatory bowel disorders. He was seen and fully evaluated in the emergency department, CT abdomen and pelvis with contrast was completed revealing focal partial distal small bowel obstruction with concerns of central mid abdominal mass accompanied by surrounding fat stranding at site of the partial proximal small bowel obstruction and distal colonic diverticula, no evidence of acute diverticulitis. Lab work unremarkable with the exception of polycythemia with hemoglobin of 17.7. Urinalysis negative for blood or infection. While in the emergency Department patient became tachycardic, and EKG was completed revealing atrial fibrillation with RVR at 123 bpm. Patient was given a Cardizem bolus and started on Cardizem infusion. Echocardiogram completed revealing EF of 50-55%. Patient admitted under our services with consultation to general surgery and cardiology. He received IV hydration and control of his RVR. Patient was seen by general surgery and monitor closely. Bowel obstruction resolved. Patient tolerating oral intake. General surgery discussed with patient patient requesting to follow up outpatient for colonoscopy. Patient medically stable and being discharged home to follow-up with PCP in 2 days and general surgery as instructed to have colonoscopy completed to further evaluate abdominal mass. Please refer to Progress Note written earlier in the day to review a full detailed physical examination. A total of 45 minutes of time were spent preparing this complex discharge summary. Patient Condition at Discharge: Stable Plan - Discharge Summary Discharge Rx Participant: No New Discharge Prescriptions: Continue Chlorthalidone [Hygroton] 25 mg PO DAILY Montelukast [Singulair] 10 mg PO DAILY Atorvastatin [Lipitor] 20 mg PO DAILY Sertraline [Zoloft] 100 mg PO DAILY Ramipril 2.5 mg PO DAILY Apixaban [Eliquis] 5 mg PO BID Metoprolol Tartrate [Lopressor] 50 mg PO BID #60 tab Discharge Medication List Atorvastatin [Lipitor] 20 mg PO DAILY 09/11/16 [History] Chlorthalidone [Hygroton] 25 mg PO DAILY 09/11/16 [History] Montelukast [Singulair] 10 mg PO DAILY 09/11/16 [History] Ramipril 2.5 mg PO DAILY 09/11/16 [History] Sertraline [Zoloft] 100 mg PO DAILY 09/11/16 [History] Apixaban [Eliquis] 5 mg PO BID 09/26/17 [History] Metoprolol Tartrate [Lopressor] 50 mg PO BID #60 tab 09/28/17 [Rx] Follow up Appointment(s)/Referral(s): Timoteo Beck MD [Medical Doctor] - 1 Week (OFFICES ARE CLOSED AT THIS TIME. PLEASE CALL TOMORROW 06/05/2021 TO MAKE A FOLLOW UP APPOINTMENT.) Gin Flores MD [Primary Care Provider] - 1-2 days (OFFICES ARE CLOSED AT THIS TIME. PLEASE CALL TOMORROW 06/05/2021 TO MAKE A FOLLOW UP APPOINTMENT.) Trent Andrews MD [REFERRING] - 2 Weeks (OFFICES ARE CLOSED AT THIS TIME. PLEASE CALL TOMORROW 06/05/2021 TO MAKE A FOLLOW UP APPOINTMENT.) Patient Instructions/Handouts: A-fib (Atrial Fibrillation) (DC), Acute Abdominal Pain (DC), Colonoscopy (DC) Activity/Diet/Wound Care/Special Instructions: Activity: as tolerated Diet: low residual Thank you for trusting us to care for you. We wish you well on your journey to better health. Discharge Disposition: HOME SELF-CARE
== END 2021-06-04 19:05 | disposition home or self-care (01) | DRG 389 ==
LOC: EC 07:15 → 3SCARD 09:26
PROVIDERS: ADMIT Internal Medicine; ATTEND Internal Medicine
DX: K56.600 Partial intestinal obstruction, unspecified as to cause (principal); D68.59 Other primary thrombophilia; I48.19 Other persistent atrial fibrillation; I48.0 Paroxysmal atrial fibrillation; Z79.01 Long term (current) use of anticoagulants; D75.1 Secondary polycythemia; E78.5 Hyperlipidemia, unspecified; I10 Essential (primary) hypertension; G47.33 Obstructive sleep apnea (adult) (pediatric); R19.09 Other intra-abdominal and pelvic swelling, mass and lump; K57.30 Diverticulosis of large intestine without perforation or abscess without bleeding; I25.10 Atherosclerotic heart disease of native coronary artery without angina pectoris; I25.2 Old myocardial infarction; J45.909 Unspecified asthma, uncomplicated; Z86.010 Personal history of colon polyps; F32.A Depression, unspecified; Z20.822 Contact with and (suspected) exposure to COVID-19; Z79.899 Other long term (current) drug therapy; Z80.1 Family history of malignant neoplasm of trachea, bronchus and lung; Z86.711 Personal history of pulmonary embolism; Z86.718 Personal history of other venous thrombosis and embolism; Z87.891 Personal history of nicotine dependence; Z98.890 Other specified postprocedural states; Z83.2 Family history of diseases of the blood and blood-forming organs and certain disorders involving the immune mechanism
CPT/HCPCS: 36415; 74177; 74250; 80053; 81003; 82150; 82272; 83605; 83690; 83735; 84484; 85025; 85027; 85610; 85730; 87635; 93005; 93306; 94640; 96365; 96366; 96375; 96376; 99291

== ENCOUNTER 2021-06-27 20:46 | Emergency (ER) | payer OTHER ==
[2021-06-27 20:51] VITALS: TEMP 97.7
[2021-06-27] MEDS ORDERED: SODIUM CHLORIDE 0.9% 500 ML 500 ML IV STA (21:26)
[2021-06-27] MEDS ORDERED: HYDROmorphone 1 MG/ML 1 ML SYRINGE IVP STA (21:26)
--- NOTE | 2021-06-27 21:28 | ED ---
Abdominal Pain HPI - General Chief Complaint: Abdominal Pain Stated Complaint: abd pain-revisit Time Seen by Provider: 06/27/21 21:14 Source: patient Mode of arrival: ambulatory Limitations: no limitations - History of Present Illness Initial Comments: 's patient is a 55-year-old man who presents to be evaluated for abdominal pain. Patient had recently been in the hospital for the same thing and states he has a mass in his abdomen which they're recommending be removed. The patient in fact did have follow-up with Dr. Beck this afternoon. He states that on the way home from the follow up around 5:30 he had eaten [employer] and then this pain started. He indicates diffusely throughout the abdomen. MD Complaint: abdominal pain -: hour(s) (4) Location: diffuse Radiation: none Migration to: no migration Severity: severe Quality: cramping, aching Consistency: constant Improves With: nothing Worsens With: nothing - Related Data Home Medications Medication Instructions Recorded Confirmed Atorvastatin [Lipitor] 20 mg PO DAILY 09/11/16 06/27/21 Chlorthalidone [Hygroton] 25 mg PO DAILY 09/11/16 06/27/21 Montelukast [Singulair] 10 mg PO DAILY 09/11/16 06/27/21 Ramipril 2.5 mg PO DAILY 09/11/16 06/27/21 Sertraline [Zoloft] 100 mg PO DAILY 09/11/16 06/27/21 Apixaban [Eliquis] 5 mg PO BID 09/26/17 06/27/21 Gabapentin [Neurontin] 300 mg PO BID PRN 06/27/21 06/27/21 Previous Rx's Medication Instructions Recorded Metoprolol Tartrate [Lopressor] 50 mg PO BID #60 tab 09/28/17 Dicyclomine [Bentyl] 20 mg PO QID #15 tablet 06/28/21 Allergies Allergy/AdvReac Type Severity Reaction Status Date / Time No Known Allergies Allergy Verified 06/27/21 22:19 Review of Systems ROS Statement: Those systems with pertinent positive or pertinent negative responses have been documented in the HPI. ROS Other: All systems not noted in ROS Statement are negative. Constitutional: Denies: fever, chills Respiratory: Denies: cough, dyspnea Cardiovascular: Denies: chest pain, palpitations, edema, syncope Gastrointestinal: Reports: abdominal pain, nausea. Denies: vomiting, diarrhea, constipation, melena, hematochezia Genitourinary: Denies: dysuria, frequency, hematuria, testicular pain, testi cular mass Musculoskeletal: Denies: back pain Skin: Denies: rash Neurological: Denies: headache Past Medical History Past Medical History: Atrial Fibrillation, Asthma, Blood Disorder, Deep Vein Thrombosis (DVT), Hyperlipidemia, Hypertension, Pulmonary Embolus (PE) Additional Past Medical History / Comment(s): hx low protein s- clotting disorder, DVT R leg and pulmonary embolism R lung, RABIA and states he does not use his device at this time/needs a new mask, diverticulosis, benign polyps. History of Any Multi-Drug Resistant Organisms: None Reported Past Surgical History: No Surgical Hx Reported Additional Past Surgical History / Comment(s): cardioversion x2, lymph node x 3 removed lt axillae-benign, colonoscopy with polypectomies. Past Anesthesia/Blood Transfusion Reactions: No Reported Reaction Past Psychological History: Depression Smoking Status: Former smoker Past Alcohol Use History: Occasional Past Drug Use History: None Reported - Past Family History Sister(s) Family Medical History: Deep Vein Thrombosis (DVT) Mother Family Medical History: Cancer Additional Family Medical History / Comment(s): Mother of lung cancer. She was a nonsmoker. 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 Father Family Medical History: Cancer Additional Family Medical History / Comment(s): Father of lung cancer. He was a smoker. General Exam Limitations: no limitations General appearance: alert, in no apparent distress Head exam: Present: atraumatic, normocephalic Eye exam: Present: normal appearance. Absent: scleral icterus, conjunctival injection Neck exam: Present: normal inspection Respiratory exam: Present: normal lung sounds bilaterally. Absent: respiratory distress, wheezes, rales, rhonchi, stridor Cardiovascular Exam: Present: regular rate, normal rhythm, normal heart sounds. Absent: systolic murmur, diastolic murmur, rubs, gallop GI/Abdominal exam: Present: soft, normal bowel sounds. Absent: distended, tenderness, guarding, rebound, rigid, organomegaly, mass, pulsatile mass, hernia Extremities exam: Present: normal inspection, normal capillary refill. Absent: pedal edema, calf tenderness Back exam: Present: normal inspection. Absent: CVA tenderness (R), CVA tenderness (L) Neurological exam: Present: alert Skin exam: Present: warm, dry, intact, normal color. Absent: rash Course Vital Signs 06/27/21 06/28/21 20:48 00:35 Temperature 97.7 F Pulse Rate 90 85 Respiratory 20 16 Rate Blood Pressure 145/98 150/87 O2 Sat by Pulse 99 Oximetry Medical Decision Making - Lab Data Result diagrams: 06/27/21 21:35 06/27/21 21:35 Lab Results 06/27/21 06/27/21 06/27/21 Range/Units 21:35 21:35 23:59 WBC 8.6 (3.8-10.6) k/uL RBC 5.44 (4.30-5.90) m/uL Hgb 16.8 (13.0-17.5) gm/dL Hct 50.3 (39.0-53.0) % MCV 92.5 (80.0-100.0) fL MCH 30.9 (25.0-35.0) pg MCHC 33.4 (31.0-37.0) g/dL RDW 13.2 (11.5-15.5) % Plt Count 211 (150-450) k/uL MPV 7.3 Neutrophils % 84 % Lymphocytes % 10 % Monocytes % 4 % Eosinophils % 1 % Basophils % 1 % Neutrophils # 7.2 (1.3-7.7) k/uL Lymphocytes # 0.8 L (1.0-4.8) k/uL Monocytes # 0.4 (0-1.0) k/uL Eosinophils # 0.1 (0-0.7) k/uL Basophils # 0.1 (0-0.2) k/uL Sodium 139 (137-145) mmol/L Potassium 4.3 (3.5-5.1) mmol/L Chloride 100 (98-107) mmol/L Carbon Dioxide 33 H (22-30) mmol/L Anion Gap 6 mmol/L BUN 12 (9-20) mg/dL Creatinine 1.18 (0.66-1.25) mg/dL Est GFR (CKD-EPI)AfAm 80 (>60 ml/min/1.73 sqM) Est GFR (CKD-EPI)NonAf 69 (>60 ml/min/1.73 sqM) Glucose 145 H (74-99) mg/dL Calcium 9.6 (8.4-10.2) mg/dL Total Bilirubin 0.7 (0.2-1.3) mg/dL AST 32 (17-59) U/L ALT 30 (4-49) U/L Alkaline Phosphatase 96 (38-126) U/L Total Protein 7.6 (6.3-8.2) g/dL Albumin 4.3 (3.5-5.0) g/dL Amylase 64 (30-110) U/L Lipase 106 (23-300) U/L Urine Color Yellow Urine Appearance Clear (Clear) Urine pH 7.5 (5.0-8.0) Ur Specific Henning 1.022 (1.001-1.035) Urine Protein Trace H (Negative) Urine Glucose (UA) Negative (Negative) Urine Ketones Negative (Negative) Urine Blood Negative (Negative) Urine Nitrite Negative (Negative) Urine Bilirubin Negative (Negative) Urine Urobilinogen 2.0 (<2.0) mg/dL Ur Leukocyte Esterase Negative (Negative) Disposition Clinical Impression: Abdominal pain Disposition: HOME SELF-CARE Condition: Good Instructions (If sedation given, give patient instructions): Abdominal Pain (ED) Prescriptions: Dicyclomine [Bentyl] 20 mg PO QID #15 tablet Is patient prescribed a controlled substance at d/c from ED?: No Referrals: Gin Flores MD [Primary Care Provider] - 1-2 days
[2021-06-27 21:53] LABS: Basophils # (A) 0.1 k/uL (0-0.2); Basophils % (A) 1 %; Eosinophils # (A) 0.1 k/uL (0-0.7); Eosinophils % (A) 1 %; HCT 50.3 % (39.0-53.0); HGB 16.8 gm/dL (13.0-17.5); Lymphocytes # (A) 0.8 k/uL (1.0-4.8); Lymphocytes % (A) 10 %; MCH 30.9 pg (25.0-35.0); MCHC 33.4 g/dL (31.0-37.0); MCV 92.5 fL (80.0-100.0); Mean Platelet Volume 7.3; Monocytes # (A) 0.4 k/uL (0-1.0); Monocytes % (A) 4 %; Neutrophils # (A) 7.2 k/uL (1.3-7.7); Neutrophils % (A) 84 %; Platelet Count 211 k/uL (150-450); RBC 5.44 m/uL (4.30-5.90); RDW 13.2 % (11.5-15.5); WBC 8.6 k/uL (3.8-10.6)
[2021-06-27 22:02] LABS: Albumin 4.3 g/dL (3.5-5.0); Calcium 9.6 mg/dL (8.4-10.2); Potassium 4.3 mmol/L (3.5-5.1); Total Bilirubin 0.7 mg/dL (0.2-1.3); Total Protein 7.6 g/dL (6.3-8.2)
--- NOTE | 2021-06-27 22:08 | XR ---
EXAMINATION TYPE: XR KUB DATE OF EXAM: 06/27/2021 COMPARISON: NONE HISTORY: Abdominal pain TECHNIQUE: 2 views upright FINDINGS: There is no sign of intestinal obstruction or pneumoperitoneum. Fecal pattern is normal. Th ere is no sign of a mass. IMPRESSION: Nonacute abdomen.
[2021-06-28 00:25] LABS: Appearance,Urine Clear (Clear); Bilirubin,Urine Negative (Negative); Blood,Urine Negative (Negative); Color,Urine Yellow; Glucose,Urine (UA) Negative (Negative); Ketones,Urine Negative (Negative); Leukocyte Esterase,Urine Negative (Negative); Nitrite,Urine Negative (Negative); PH, Urine 7.5 (5.0-8.0); Protein,Urine Trace (Negative); Specific Gravity,Urine 1.022 (1.001-1.035)
[2021-06-28 00:37] VITALS: BP 150/87; PULSE 85; RESP 16
[2021-06-28] MEDS ORDERED: MORPHINE SULFATE 4 MG/ML SYRINGE IV STA (02:05)
== END 2021-06-28 02:20 | disposition home or self-care (01) ==
LOC: EC 20:46
DX: R10.9 Unspecified abdominal pain (principal); J45.909 Unspecified asthma, uncomplicated; I10 Essential (primary) hypertension; Z87.891 Personal history of nicotine dependence
CPT/HCPCS: 36415; 80053; 82150; 83690; 85025; 81003; 74018; 99284; 96374; 96375; 96361; J2270; J1170

== ENCOUNTER 2021-07-15 03:18 | Emergency (ER) | payer OTHER ==
[2021-07-15 03:24] VITALS: TEMP 97.7
[2021-07-15] MEDS ORDERED: ONDANSETRON 4 MG/2 ML VIAL IVP STA (03:35)
[2021-07-15] MEDS ORDERED: diphenhydrAMINE 50 MG/ML 1 ML VIAL IVP STA (03:35)
[2021-07-15] MEDS ORDERED: SODIUM CHLORIDE 0.9% 1,000 ML IV STA ×2 (03:35→06:17)
[2021-07-15] MEDS ORDERED: HYDROmorphone 1 MG/ML 1 ML SYRINGE IVP STA ×2 (03:35→06:25)
--- NOTE | 2021-07-15 03:36 | ED ---
Abdominal Pain HPI - General Chief Complaint: Abdominal Pain Stated Complaint: Abdominal Pain Time Seen by Provider: 07/15/21 03:26 Source: patient, RN notes reviewed, old records reviewed Mode of arrival: EMS Limitations: no limitations - History of Present Illness Initial Comments: This is a 56-year-old male who is presented today for the ER for evaluation regarding abdominal pain patient has known abdominal tumor which is causing pain in the past. Patient states the pain is worsening. He is scheduled for outpatient surgery. Patient inpatient hospitalization here about a month ago for similar pain. With his when they found this tumor. Patient hasn't nausea no vomiting did have a bowel movement today no fevers. MD Complaint: abdominal pain, other (History of abdominal wall tumor) -: week(s) Location: diffuse, epigastric Radiation: epigastric Migration to: no migration Severity: moderate Severity scale (1-10): 7 Quality: fullness, sharp Consistency: constant Improves With: nothing Worsens With: eating Associated Symptoms: nausea Treatments Prior to Arrival: other (none) - Related Data Home Medications Medication Instructions Recorded Confirmed Atorvastatin [Lipitor] 20 mg PO DAILY 09/11/16 06/27/21 Chlorthalidone [Hygroton] 25 mg PO DAILY 09/11/16 06/27/21 Montelukast [Singulair] 10 mg PO DAILY 09/11/16 06/27/21 Ramipril 2.5 mg PO DAILY 09/11/16 06/27/21 Sertraline [Zoloft] 100 mg PO DAILY 09/11/16 06/27/21 Apixaban [Eliquis] 5 mg PO BID 09/26/17 06/27/21 Gabapentin [Neurontin] 300 mg PO BID PRN 06/27/21 06/27/21 Previous Rx's Medication Instructions Recorded Metoprolol Tartrate [Lopressor] 50 mg PO BID #60 tab 09/28/17 Dicyclomine [Bentyl] 20 mg PO QID #15 tablet 06/28/21 Allergies Allergy/AdvReac Type Severity Reaction Status Date / Time No Known Allergies Allergy Verified 06/27/21 22:19 Review of Systems ROS Statement: Those systems with pertinent positive or pertinent negative responses have been documented in the HPI. ROS Other: All systems not noted in ROS Statement are negative. Past Medical History Past Medical History: Atrial Fibrillation, Asthma, Blood Disorder, Deep Vein Thrombosis (DVT), Hyperlipidemia, Hypertension, Pulmonary Embolus (PE) Additional Past Medical History / Comment(s): hx low protein s- clotting disor twin, DVT R leg and pulmonary embolism R lung, RABIA and states he does not use his device at this time/needs a new mask, diverticulosis, benign polyps. History of Any Multi-Drug Resistant Organisms: None Reported Past Surgical History: No Surgical Hx Reported Additional Past Surgical History / Comment(s): cardioversion x2, lymph node x 3 removed lt axillae-benign, colonoscopy with polypectomies. Past Anesthesia/Blood Transfusion Reactions: No Reported Reaction Past Psychological History: Depression Smoking Status: Former smoker Past Alcohol Use History: Occasional Past Drug Use History: None Reported - Past Family History Sister(s) Family Medical History: Deep Vein Thrombosis (DVT) Mother Family Medical History: Cancer Additional Family Medical History / Comment(s): Mother of lung cancer. She was a nonsmoker. 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 Father Family Medical History: Cancer Additional Family Medical History / Comment(s): Father of lung cancer. He was a smoker. General Exam General appearance: alert, in no apparent distress, anxious Head exam: Present: atraumatic, normocephalic, normal inspection Eye exam: Present: normal appearance, PERRL, EOMI. Absent: scleral icterus, con junctival injection, periorbital swelling ENT exam: Present: normal exam, mucous membranes dry Neck exam: Present: normal inspection. Absent: tenderness, meningismus, lymphadenopathy Respiratory exam: Present: normal lung sounds bilaterally. Absent: respiratory distress, wheezes, rales, rhonchi, stridor Cardiovascular Exam: Present: normal rhythm, tachycardia, normal heart sounds. Absent: systolic murmur, diastolic murmur, rubs, gallop, clicks GI/Abdominal exam: Present: soft, tenderness, normal bowel sounds. Absent: distended, guarding, rebound, rigid Extremities exam: Present: normal inspection, full ROM, normal capillary refill. Absent: tenderness, pedal edema, joint swelling, calf tenderness Back exam: Present: normal inspection Neurological exam: Present: alert, oriented X3, CN II-XII intact Psychiatric exam: Present: normal affect, normal mood Skin exam: Present: warm, dry, intact, normal color. Absent: rash Course Vital Signs 07/15/21 07/15/21 07/15/21 03:21 04:08 04:50 Temperature 97.7 F Pulse Rate 121 H 80 98 Respiratory 18 16 16 Rate Blood Pressure 150/104 133/85 O2 Sat by Pulse 97 95 96 Oximetry 07/15/21 06:41 Temperature Pulse Rate 112 H Respiratory 18 Rate Blood Pressure 134/62 O2 Sat by Pulse 98 Oximetry - Reevaluation(s) Reevaluation #1: 07/15/21 Medical record is reviewed Patient symptoms are improved here in the ER Patient feels comfortable for discharge home Medical Decision Making - Medical Decision Making 56 male to the emergency department for evaluation of abdominal pain secondary to abdominal tumor. Mild ileus the patient is not vomiting. No fevers. Lactic acid was elevated but patient is adequately resuscitated pain is controlled and he can be discharged home - Lab Data Result diagrams: 07/15/21 04:03 07/15/21 04:03 Lab Results 07/15/21 07/15/21 07/15/21 Range/Units 04:03 04:03 04:03 WBC 7.2 (3.8-10.6) k/uL RBC 5.41 (4.30-5.90) m/uL Hgb 16.7 (13.0-17.5) gm/dL Hct 49.7 (39.0-53.0) % MCV 91.8 (80.0-100.0) fL MCH 30.9 (25.0-35.0) pg MCHC 33.6 (31.0-37.0) g/dL RDW 13.5 (11.5-15.5) % Plt Count 187 (150-450) k/uL MPV 8.1 Neutrophils % 82 % Lymphocytes % 10 % Monocytes % 5 % Eosinophils % 1 % Basophils % 1 % Neutrophils # 5.9 (1.3-7.7) k/uL Lymphocytes # 0.7 L (1.0-4.8) k/uL Monocytes # 0.3 (0-1.0) k/uL Eosinophils # 0.1 (0-0.7) k/uL Basophils # 0.1 (0-0.2) k/uL Sodium 137 (137-145) mmol/L Potassium 3.8 (3.5-5.1) mmol/L Chloride 102 (98-107) mmol/L Carbon Dioxide 20 L (22-30) mmol/L Anion Gap 15 mmol/L BUN 12 (9-20) mg/dL Creatinine 0.94 (0.66-1.25) mg/dL Est GFR (CKD-EPI)AfAm >90 (>60 ml/min/1.73 sqM) Est GFR (CKD-EPI)NonAf >90 (>60 ml/min/1.73 sqM) Glucose 122 H (74-99) mg/dL Lactic Ac Sepsis Rflx Plasma Lactic Acid Juan Antonio 4.2 H* (0.7-2.0) mmol/L Calcium 8.5 (8.4-10.2) mg/dL Total Bilirubin 0.7 (0.2-1.3) mg/dL AST 28 (17-59) U/L ALT 20 (4-49) U/L Alkaline Phosphatase 80 (38-126) U/L Total Protein 7.3 (6.3-8.2) g/dL Albumin 4.1 (3.5-5.0) g/dL Amylase 83 (30-110) U/L Lipase 86 (23-300) U/L /10/31 Range/Units 04:43 WBC (3.8-10.6) k/uL RBC (4.30-5.90) m/uL Hgb (13.0-17.5) gm/dL Hct (39.0-53.0) % MCV (80.0-100.0) fL MCH (25.0-35.0) pg MCHC (31.0-37.0) g/dL RDW (11.5-15.5) % Plt Count (150-450) k/uL MPV Neutrophils % % Lymphocytes % % Monocytes % % Eosinophils % % Basophils % % Neutrophils # (1.3-7.7) k/uL Lymphocytes # (1.0-4.8) k/uL Monocytes # (0-1.0) k/uL Eosinophils # (0-0.7) k/uL Basophils # (0-0.2) k/uL Sodium (137-145) mmol/L Potassium (3.5-5.1) mmol/L Chloride (98-107) mmol/L Carbon Dioxide (22-30) mmol/L Anion Gap mmol/L BUN (9-20) mg/dL Creatinine (0.66-1.25) mg/dL Est GFR (CKD-EPI)AfAm (>60 ml/min/1.73 sqM) Est GFR (CKD-EPI)NonAf (>60 ml/min/1.73 sqM) Glucose (74-99) mg/dL Lactic Ac Sepsis Rflx Y Plasma Lactic Acid Juan Antonio (0.7-2.0) mmol/L Calcium (8.4-10.2) mg/dL Total Bilirubin (0.2-1.3) mg/dL AST (17-59) U/L ALT (4-49) U/L Alkaline Phosphatase (38-126) U/L Total Protein (6.3-8.2) g/dL Albumin (3.5-5.0) g/dL Amylase (30-110) U/L Lipase (23-300) U/L - Radiology Data Radiology results: report reviewed (CT abdomen and pelvis is relatively unchanged from prior), image reviewed Disposition Clinical Impression: Abdominal pain, Abdominal tumor, Intractable abdominal pain Disposition: HOME SELF-CARE Condition: Good Instructions (If sedation given, give patient instructions): Abdominal Pain (ED) Is patient prescribed a controlled substance at d/c from ED?: No Referrals: Gin Flores MD [Primary Care Provider] - 1-2 days
[2021-07-15 04:15] LABS: Basophils # (A) 0.1 k/uL (0-0.2); Basophils % (A) 1 %; Eosinophils # (A) 0.1 k/uL (0-0.7); Eosinophils % (A) 1 %; HCT 49.7 % (39.0-53.0); HGB 16.7 gm/dL (13.0-17.5); Lymphocytes # (A) 0.7 k/uL (1.0-4.8); Lymphocytes % (A) 10 %; MCH 30.9 pg (25.0-35.0); MCHC 33.6 g/dL (31.0-37.0); MCV 91.8 fL (80.0-100.0); Mean Platelet Volume 8.1; Monocytes # (A) 0.3 k/uL (0-1.0); Monocytes % (A) 5 %; Neutrophils # (A) 5.9 k/uL (1.3-7.7); Neutrophils % (A) 82 %; Platelet Count 187 k/uL (150-450); RBC 5.41 m/uL (4.30-5.90); RDW 13.5 % (11.5-15.5); WBC 7.2 k/uL (3.8-10.6)
[2021-07-15 04:35] LABS: ALT 20 U/L (4-49); AST 28 U/L (17-59); African American GFR (CKD) >90 (>60 ml/min/1.73 sqM); Albumin 4.1 g/dL (3.5-5.0); Alkaline Phosphatase 80 U/L (38-126); Amylase 83 U/L (30-110); Anion Gap 15 mmol/L; Blood Urea Nitrogen 12 mg/dL (9-20); Calcium 8.5 mg/dL (8.4-10.2); Carbon Dioxide 20 mmol/L (22-30); Chloride 102 mmol/L (98-107); Glucose 122 mg/dL (74-99); Lipase 86 U/L (23-300); Non-African American GFR(CKD) >90 (>60 ml/min/1.73 sqM); Potassium 3.8 mmol/L (3.5-5.1); Sodium 137 mmol/L (137-145); Total Bilirubin 0.7 mg/dL (0.2-1.3); Total Protein 7.3 g/dL (6.3-8.2)
--- NOTE | 2021-07-15 06:00 | CT ---
EXAMINATION TYPE: CT abdomen pelvis w con DATE OF EXAM: 07/15/2021 COMPARISON: 05/31/2021 HISTORY: ABDOMINAL PAIN. KNOWN ABDOMINAL MASS CT DLP: 1792.7 mGycm Automated exposure control for dose reduction was used. CONTRAST: Performed with IV Contrast, patient injected with 100 mL of Isovue 300. Images obtained from the diaphragm to the floor of the pelvis with IV contrast. Lung bases are clear. There is no pleural effusion. Heart size is normal. There is no pericardial eff usion. Liver spleen and stomach pancreas gallbladder appear intact. The bile ducts are not dilated. T here is small hiatal hernia. There is no adrenal mass. Kidneys show satisfactory contrast opacification. There is no hydronephrosi s. Delayed images show normal renal excretion. There is no retroperitoneal adenopathy. Bladder disten ds smoothly. There is no inguinal hernia. There is no pelvic mass. There is no free fluid in the pelv is. Appendix is posterior and appears normal. There are some mesenteric stranding involving small bowel in the mid abdomen. There are some mildly d istended surrounding small bowel loops measuring up to 3 cm. There is 2 cm soft tissue spiculated den sity in the small bowel mesentery. There is 2 cm umbilical hernia contains fat. The lumbar vertebrae have normal alignment. There is no compression fracture. Posterior elements are intact. Bony pelvis is intact. The hip joints are intact. IMPRESSION: There is small bowel mesenteric stranding and spiculated mass in the mesentery. There is some surroun ding mildly dilated small bowel loops probably related to adhesions and partial obstruction. I would consider both inflammatory and neoplastic etiology for the appearance of the small bowel. The appeara nce is not significantly different than last exam. There are some mild large bowel diverticula without evidence for diverticulitis.
[2021-07-15] MEDS ORDERED: Acetaminophen-Codeine 300-30mg TAB PO STA (06:26)
[2021-07-15] MEDS ORDERED: METOCLOPRAMIDE 5 MG/ML 2 ML VIAL IVP STA (06:26)
[2021-07-15] MEDS ORDERED: ACET/COD 300 MG/30 MG STARTER PACK 6 TAB BTL PO STA (06:26)
[2021-07-15 06:42] VITALS: BP 134/62; PULSE 112; RESP 18
== END 2021-07-15 07:41 | disposition home or self-care (01) ==
LOC: EC 03:18
DX: D49.89 Neoplasm of unspecified behavior of other specified sites (principal); J45.909 Unspecified asthma, uncomplicated; I10 Essential (primary) hypertension
CPT/HCPCS: 36415; 80053; 82150; 83605; 83690; 85025; 74177; 99284; 96374; 96375; 96376; J1200; J2765; J2405; J1170; Q9967